=== PATIENT | male | born 1945 | race Caucasian/White ===

== ENCOUNTER 2017-12-01 12:21 | Emergency (ER) | payer OTHER, MEDICARE ==
[2017-12-01 12:35] VITALS: TEMP 98.2
[2017-12-01 12:42] VITALS: BP 137/68; PULSE 68; BMI 25.7
[2017-12-01] MEDS ORDERED: IBUPROFEN 600 MG TABLET (FP) PO ONE ×2 (13:15→13:17)
--- NOTE | 2017-12-01 13:49 | PDOC ---
History of Present Illness - General Chief Complaint: Injury Stated Complaint: SPRAIN ANKLE Time Seen by Provider: 12/01/17 12:50 History Source: Patient Exam Limitations: No Limitations - History of Present Illness Initial Comments: 12/01/17 14:07 72-year-old male presents to the ED with complaints of right ankle pain for the past week after spraining it when walking on uneven ollie. Patient states today when he stepped out of the car he had increasing pain to the area. Patient states left nephrectomy in August 2017 and states has neuropathy secondary to diabetes to bilateral lower extremities with decreased sensation. Timing/Duration: 1 week Severity: moderate Associated Symptoms: reports: denies symptoms Past History - Travel Traveled outside of the country in the last 30 days: No - Past Medical History Allergies/Adverse Reactions: Allergies Allergy/AdvReac Type Severity Reaction Status Date / Time No Known Allergies Allergy Verified 12/01/17 12:30 Home Medications: Ambulatory Orders Tacrolimus 3 mg PO BID 11/14/14 Ranitidine [Zantac -] 150 mg PO DAILY #30 tablet 11/16/14 Tamsulosin HCl [Flomax -] 0.4 mg PO DAILY@0830 #30 cap.er.24h 11/16/14 Insulin (Levemir) [Levemir Flexpen -] 26 units SQ DAILY@0700 #1 pen 01/12/15 Aspirin [ASA -] 81 mg PO DAILY 02/13/15 Metoclopramide HCl [Reglan] 5 mg PO TID 02/13/15 Pantoprazole Sodium [Protonix -] 20 mg PO DAILY 02/13/15 Ferrous Sulfate [Feosol] 325 mg PO BID #14 tablet 02/18/15 Finasteride [Proscar -] 5 mg PO DAILY #30 tablet 02/18/15 Atorvastatin Ca [Lipitor] 40 mg PO HS #30 tablet 10/16/15 Clopidogrel Bisulfate [Plavix -] 75 mg PO DAILY #30 tablet 10/16/15 Insulin Aspart [Novolog] 2 unit SQ TIDCM #1 ml 10/16/15 hydrALAZINE HCL [Apresoline -] 10 mg PO TID #90 tablet 10/16/15 levoFLOXacin [Levaquin -] 250 mg PO DAILY@0600 #5 tablet 10/16/15 Oxycodone HCl/Acetaminophen [Percocet 5-325 mg Tablet] 1 - 2 tab PO Q6H PRN #12 tab MDD 4 12/01/17 Anemia: No Asthma: No Cancer: No Cardiac Disorders: Yes CVA: Yes COPD: No CHF: No Dementia: No Diabetes: Yes GI Disorders: No Disorders: Yes (right KIDNEY TRANSPLANT.) HTN: No Hypercholesterolemia: No Liver Disease: No Seizures: No Thyroid Disease: No - Surgical History Abdominal Surgery: No Appendectomy: No Cardiac Surgery: Yes (cabg) Cholecystectomy: No Lung Surgery: No Neurologic Surgery: No Orthopedic Surgery: No - Immunization History Immunization Up to Date: Yes - Suicide/Smoking/Psychosocial Hx Smoking History: Never smoked Have you smoked in the past 12 months: No Number of Cigarettes Smoked Daily: 10 If you are a former smoker, when did you quit?: 4yrs ago Information on smoking cessation initiated: No 'Breaking Loose' booklet given: 12/31/14 Hx Alcohol Use: No Drug/Substance Use Hx: No Substance Use Type: None Hx Substance Use Treatment: No Patient Lives Alone: No Lives with/in: spouse/SO Review of Systems - Review of Systems Able to Perform ROS?: Yes Constitutional: No: Symptoms Reported Musculoskeletal: Yes: Joint Pain (right ankle), Joint Swelling (right ankle) Integumentary: Yes: Bruising (right ankle) Neurological: No: Symptoms reported Endocrine: No: Symptoms Reported Hematologic/Lymphatic: No: Symptoms Reported *Physical Exam - Vital Signs Last Vital Signs Temp Pulse Resp BP Pulse Ox 98.2 F 68 16 137/68 96 12/01/17 12:31 12/01/17 12:31 12/01/17 12:31 12/01/17 12:31 12/01/17 12:31 - Physical Exam General Appearance: Yes: Nourished, Appropriately Dressed, Mild Distress Vascular Pulses: Dorsalis-Pedis (R): 2+ Extremity: positive: Normal Capillary Refill, Tender (to lateral aspect of right malleolus). negative: Normal Inspection, Normal Range of Motion Integumentary: positive: Swelling, Ecchymosis (lateral aspect of right Malleolus ) Neurologic: positive: Motor Strength 5/5 (ambulating with limp). negative: Sensory Deficit Procedures - Splinting Splint Location: Right: Ankle Pre-Proc Neuro Vasc Exam: normal Hand-Made Type: orthoglass Splint Type: Yes: Sugar Tong, Posterior Post-Proc Neuro Vasc Exam: normal Shashi Bandage: 3" Complications: No Good repositioning: Yes ED Treatment Course - RADIOLOGY Radiology Studies Ordered: Category Date Time Status ANKLE-RIGHT [RAD] Stat Radiology 12/01/17 13:02 Taken ANKLE-RIGHT [RAD] Stat Radiology 12/01/17 13:37 Ordered - Medications Given in the ED: ED Medications Discontinued Medications Generic Name Dose Route Start Last Admin Trade Name Freq PRN Reason Stop Dose Admin Ibuprofen 600 mg 12/01/17 13:15 12/01/17 13:19 Motrin - PO 12/01/17 13:16 600 mg ONCE ONE Administration Medical Decision Making - Medical Decision Making 12/01/17 13:51 Patient with injury to right ankle after tripping one week ago. Patient concerning the fracture secondary to tenderness swelling and limited range of motion of right malleolus. Patient ordered for x-ray along with Motrin for discomfort 12/01/17 14:15 X-ray shows a right displaced distal fibular fracture and a nondisplaced distal tibia fracture. consultation placed to Dr Hedrick and awaiting callback. 12/01/17 14:52 Case discussed with ROXANA Sexton and recommended posterior leg splint and a sugar tong splint. Pt will be non weight bearing and given xray on disc since he wants to go to [facility]. *DC/Admit/Observation/Transfer Diagnosis at time of Disposition: Closed bimalleolar fracture of right ankle Qualifiers: Encounter type: initial encounter Qualified Code(s): S82.841A - Displaced bimalleolar fracture of right lower leg, initial encounter for closed fracture - Discharge Dispostion Disposition: HOME Condition at time of disposition: Good - Prescriptions Prescriptions: Oxycodone HCl/Acetaminophen [Percocet 5-325 mg Tablet] 1 - 2 tab PO Q6H PRN #12 tab MDD 4 PRN Reason: Pain - Referrals Referrals: Jett Verma MD [Primary Care Provider] - Fly Hedrick MD [Staff Physician] - - Patient Instructions Printed Discharge Instructions: DI for Ankle Fracture Additional Instructions: Please follow-up with your doctor in orthopedist to discuss management of your ankle fracture. You may take Percocet for discomfort. Please apply ice to the affected area and elevate when not ambulatory Please avoid placing weight to the area - Post Discharge Activity
== END 2017-12-01 15:25 | disposition home or self-care (01) ==
LOC: JERFT 12:21
PROC: 2W3QX1Z Immobilization of Right Lower Leg using Splint (ICD-10-PCS; principal; 2017-12-01)
DX: S82.841A Displaced bimalleolar fracture of right lower leg, initial encounter for closed fracture (principal); W01.0XXA Fall on same level from slipping, tripping and stumbling without subsequent striking against object, initial encounter; Y93.89 Activity, other specified; Y92.89 Other specified places as the place of occurrence of the external cause; Y99.8 Other external cause status; E11.42 Type 2 diabetes mellitus with diabetic polyneuropathy; Z79.4 Long term (current) use of insulin; Z86.73 Personal history of transient ischemic attack (TIA), and cerebral infarction without residual deficits; Z87.891 Personal history of nicotine dependence; Z94.0 Kidney transplant status
CPT/HCPCS: 73610-TC-RT-FY; 99281-25

== ENCOUNTER 2018-12-13 22:03 | Inpatient (IN) | payer OTHER, MEDICARE ==
[2018-12-13 22:53] LABS: BASO % 1.3 % (0-2.0); EOS % 1.7 % (0-4.5); HEMATOCRIT 33.2 % (35.4-49); HEMOGLOBIN 10.7 GM/dl (11.7-16.9); LYMPH % 20.1 % (8-40); MCH 28.5 pg (25.7-33.7); MCHC 32.4 g/dl (32.0-35.9); MEAN CELL VOLUME 88.1 fl (80-96); MEAN PLT VOLUME 8.4 fl (7.5-11.1); MONO % 6.8 % (3.8-10.2); NEUT % 70.1 % (42.8-82.8); PLATELET COUNT 185 K/MM3 (134-434); RBC 3.77 M/mm3 (4.00-5.60); RDW 14.8 % (11.9-15.9); WHITE BLOOD COUNT 4.4 K/mm3 (4.0-10.8)
[2018-12-13 23:06] LABS: INR 1.24 (0.82-1.09); PROTHROMBIN TIME (PATIENT) 13.8 SEC (10.2-13.0)
[2018-12-13 23:12] LABS: ALBUMIN 3.7 g/dl (3.4-5.0); ALK PHOS 177 U/L (45-117); ANION GAP 6 MMOL/L (8-16); BILIRUBIN,TOTAL 0.5 mg/dl (0.2-1); BLOOD UREA NITROGEN 37 mg/dl (7-18); CALCIUM 9.1 mg/dl (8.5-10); CHLORIDE 107 mmol/L (98-107); CO2 23 mmol/L (21-32); CREATININE 1.6 mg/dl (0.55-1.3); GLUCOSE,RANDOM 271 mg/dl (74-106); SGOT/AST 22 U/L (15-37); SGPT/ALT 27 U/L (13-61); SODIUM 136 mmol/L (136-145); TOT PROT 6.1 g/dl (6.4-8.2)
[2018-12-13 23:13] LABS: POTASSIUM 5.7 mmol/L (3.5-5.1)
--- NOTE | 2018-12-13 23:29 | PDOC ---
Documentation entered by Leroy Haile SCRIBE, acting as scribe for Mayra Cedeño MD. Mayra Cedeño MD: This documentation has been prepared by the Lazara adams Juan Manue, SCRIBE, under my direction and personally reviewed by me in its entirety. I confirm that the documentation accurately reflects all work, treatment, procedures, and medical decision making performed by me. History of Present Illness - General Chief Complaint: Congestive Heart Failure Stated Complaint: SOB Time Seen by Provider: 12/13/18 22:16 History Source: Patient, Family Exam Limitations: No Limitations - History of Present Illness Initial Comments: 12/13/18 22:36 The patient is a 73 year old male presenting with his son, who presents to the ED complaining of shortness of breath and ascites for the past 3 weeks. As per the son, the patient saw his PMD, did bloodwork and advised him to see a spot billing clerk. The patient saw the spot billing clerk today, who sent him to the ED for further evaluation. On presentation, the patient notes that he feels more swollen than usual, mostly localized in his abdomen. He notes that he has had swelling before but not to this severity. He also notes that he had swelling in his feet but has subsided. He reports that he is unable to sleep in certain positions due to his shortness of breath. The patient denies chest pain, headache and dizziness. Denies fever, chills, nausea, vomiting, diarrhea or constipation. PAST MEDICAL HISTORY: CVA, Diabetes, ESRD right kidney transplant PAST SURGICAL HISTORY: Right kidney transplant, CABG X3 FAMILY HISTORY: no pertinent history SOCIAL HISTORY: Pt lives with family and is employed. MEDICATIONS: reviewed ALLERGIES: As per nursing notes HOSPITAL MORTICIAN: Dr. Trent General: No fevers or chills, no weakness, no weight loss HEENT: No change in vision. No sore throat,. No ear pain CardioVascular: No chest pain or shortness of breath Respiratory: (+) Shortness of breath. No cough, or wheezing. Gastrointestinal: (+) Ascites. no nausea, vomiting, diarrhea or constipation, No rectal bleeding Genitourinary: No dysuria, hematuria, or frequency Musculoskeletal: No joint or muscle pain or swelling Neurologic: No headache, vertigo, dizziness or loss of consciousness Psychiatric: nor depression Skin: No rashes or easy bruising Endocrine: no increased thirst or abnormal weight change Allergic: no skin or latex allergy All other systems reviewed and normal General: Well-nourished well-developed individual, no acute distress HEENT: Throat: Normal, tonsils normal, no erythema or exudate Neck: Supple, no meningeal signs, no lymphadenopathy Eyes::Pupils equal reactive and round, extraocular motion intact Chest: Nontender to palpation Cardiac: S1-S2 normal, regular rate and rhythm, no murmurs rubs or gallops Respiratory: (+) Rales bilateral bases Abdomen: (+) Distended. normal bowel sounds, nontender to palpation diffusely Extremities: Warm, dry, no cyanosis, clubbing, or edema Skin: No rashes Neuro: Alert and oriented x3, nonfocal exam, grossly intact, normal gait Psych: Normal mood and affect 12/13/18 23:25 Assessment and plan: This is a 73-year-old male who comes in complaining of difficulty breathing with two-pillow orthopnea. Patient went to his primary care doctor and blood work was done that showed a BNP of over 3000 and he was sent to a spot billing clerk. The spot billing clerk said given his symptoms that he should come to the emergency room to be ruled out for cardiac disease and to have his difficulty breathing evaluated. Patient denies any chest pain. Workup was initiated including chest x-ray, CBC, comp, BNP, cardiac enzymes. Chest x-ray was interpreted by me with some congestive heart failure, an enlarged heart, and evidence of valve replacement as well as a midline sternotomy. EKG showed normal sinus rhythm with a left axis deviation otherwise no acute ST- T wave changes. Patient's potassium was mildly elevated at 5.7 Patient will be admitted to a telemetry bed. Past History - Past Medical History Allergies/Adverse Reactions: Allergies Allergy/AdvReac Type Severity Reaction Status Date / Time No Known Allergies Allergy Verified 12/01/17 12:30 Home Medications: Ambulatory Orders Tacrolimus 5 mg PO HS 11/14/14 Ranitidine [Zantac -] 150 mg PO DAILY #30 tablet 11/16/14 Aspirin [ASA -] 81 mg PO DAILY 02/13/15 Mycophenolate Sodium [Mycophenolic Acid] 360 mg PO BID 12/13/18 Tamsulosin HCl [Flomax -] 0.8 mg PO DAILY@0830 12/13/18 Anemia: No Asthma: No Cancer: No Cardiac Disorders: Yes CVA: Yes COPD: No CHF: No Dementia: No Diabetes: Yes GI Disorders: No Disorders: Yes (ESRD, right KIDNEY TRANSPLANT.) HTN: No Hypercholesterolemia: No Liver Disease: No Seizures: No Thyroid Disease: No - Surgical History Abdominal Surgery: No Appendectomy: No Cardiac Surgery: Yes ([id number]) Cholecystectomy: No Lung Surgery: No Neurologic Surgery: No Orthopedic Surgery: No - Immunization History Immunization Up to Date: Yes - Suicide/Smoking/Psychosocial Hx Smoking History: Unknown if ever smoked Have you smoked in the past 12 months: No Number of Cigarettes Smoked Daily: 10 If you are a former smoker, when did you quit?: 4yrs ago Information on smoking cessation initiated: No 'Breaking Loose' booklet given: 12/31/14 Hx Alcohol Use: No Drug/Substance Use Hx: No Substance Use Type: None Hx Substance Use Treatment: No *Physical Exam - Vital Signs Last Vital Signs Temp Pulse Resp BP Pulse Ox 97.9 F 74 18 176/65 H 95 12/13/18 22:17 12/13/18 22:17 12/13/18 22:17 12/13/18 22:17 12/13/18 22:17 ED Treatment Course - LABORATORY CBC & Chemistry Diagram: 12/13/18 22:35 12/13/18 22:35 - ADDITIONAL ORDERS Additional order review: Laboratory Results 12/13/18 12/13/18 12/13/18 22:35 22:35 22:35 PT with INR INR Sodium 136 Potassium 5.7 H Chloride 107 Carbon Dioxide 23 Anion Gap 6 L BUN 37 H Creatinine 1.6 H Creat Clearance w eGFR 42.70 Random Glucose 271 H Calcium 9.1 Total Bilirubin 0.5 AST 22 ALT 27 Alkaline Phosphatase 177 H Creatine Kinase 136 Troponin I < 0.03 Total Protein 6.1 L Albumin 3.7 Urine Color Urine Appearance Urine pH Urine Protein Urine Glucose (UA) Urine Ketones Urine Blood Urine Nitrite Urine Bilirubin Urine Urobilinogen Ur Leukocyte Esterase Urine RBC Urine WBC Urine Bacteria 12/13/18 12/13/18 22:35 22:35 PT with INR 13.8 H INR 1.24 H Sodium Potassium Chloride Carbon Dioxide Anion Gap BUN Creatinine Creat Clearance w eGFR Random Glucose Calcium Total Bilirubin AST ALT Alkaline Phosphatase Creatine Kinase Troponin I Total Protein Albumin Urine Color Yellow Urine Appearance Clear Urine pH 5.5 Urine Protein 3+ H Urine Glucose (UA) Negative Urine Ketones Trace Urine Blood 1+ H Urine Nitrite Negative Urine Bilirubin Negative Urine Urobilinogen 0.2 Ur Leukocyte Esterase Negative Urine RBC 5-10 Urine WBC 0-2 Urine Bacteria Few 12/13/18 22:35 RBC 3.77 L MCV 88.1 MCHC 32.4 RDW 14.8 MPV 8.4 Neutrophils % 70.1 Lymphocytes % 20.1 Monocytes % 6.8 Eosinophils % 1.7 Basophils % 1.3 - RADIOLOGY Radiology Studies Ordered: Category Date Time Status CHEST X-RAY PORTABLE* [RAD] Stat Radiology 12/13/18 22:26 Taken *DC/Admit/Observation/Transfer Diagnosis at time of Disposition: CHF (congestive heart failure) - Discharge Dispostion Condition at time of disposition: Stable Decision to Admit order: Yes - Referrals Referrals: Naveen Trent MD [Primary Care Provider] - - Patient Instructions - Post Discharge Activity - Attestations Scribe Attestion: 12/13/18 22:36 Documentation prepared by Leroy Haile, acting as medical tech for Mayra Cedeño MD
[2018-12-13] MEDS ORDERED: SODIUM POLYSTYRENE SULFONATE 15 GM/60 ML BOTTLE PO ONE (23:48)
[2018-12-13] MEDS ORDERED: FUROSEMIDE 40 MG/4 ML INJECTABLE VIAL IVPUSH ONE (23:48)
[2018-12-13] MEDS ORDERED: FUROSEMIDE 40 MG/4 ML INJECTABLE VIAL ONE (23:50)
[2018-12-13] MEDS ORDERED: SODIUM POLYSTYRENE SULFONATE 15 GM/60 ML BOTTLE ONE (23:50)
[2018-12-14] MEDS ORDERED: HEPARIN NA (PORCINE) 5,000 UNITS/ML 1ML VIAL SQ SCH (02:00)
--- NOTE | 2018-12-14 07:29 | HP ---
CHIEF COMPLAINT: Shortness of breath, orthopnea PCP: Dr. Erazo, [facility] Cardiology: Dr. Trent HISTORY OF PRESENT ILLNESS: 73 year-old male with a PMH significant for HTN, HLD CAD s/p CABG s/p mitral and tricuspid valve repairs (2008), CVAs (2011, 2014), renal failure s/p transplant (2011), and Type II IDDM. Patient presented to the ED with a complaint of shortness of breath, orthopnea, and swelling of his abdomen, and bilateral lower extremities x 3 weeks. Patient saw his PCP Dr. Erazo on 12/[address] Erazo referred patient to see Dr. Trent, [facility]. Patient presented last night to the [facility] ED. Patient denies any change in diet, he avoids salt. He denies chest pain, palpitations. He becomes lightheaded if he changes position too quickly. He denies fever, sweats, chills. He denies recent illness. He has no difficulty urinating, denies dysuria, frequency, urgency. Dry weight is 160lbs. In ED patient weighed 168.5 lbs. ER course was notable for: (1) BNP 5416 (2) Troponin neg x 1 (3) CXR: increased central markings since 2016 Recent Travel: No PAST MEDICAL HISTORY: Hypertension Hyperlipidemia Coronary artery disease Renal failure Type II IDDM Diabetic neuropathy CVAs (2011, 2014) Peptic ulcer disease Prostate cancer PAST SURGICAL HISTORY: CABG Mitral valve repair and tricuspid valve repair 2008 donor renal transplant 2012 Right ankle fracture multiple surgeries 2018 Social History: Smoking: quit 6 years ago Alcohol: no Drugs: no Family History: Allergies No Known Allergies Allergy (Verified 12/01/17 12:30) HOME MEDICATIONS: Home Medications Medication Instructions Recorded Tacrolimus 5 mg PO HS 11/14/14 Ranitidine [Zantac -] 150 mg PO DAILY #30 tablet 11/16/14 Aspirin [ASA -] 81 mg PO DAILY 02/13/15 Mycophenolate Sodium [Mycophenolic 360 mg PO BID 12/13/18 Acid] Tamsulosin HCl [Flomax -] 0.8 mg PO DAILY@0830 12/13/18 Insulin Glargine,Hum.rec.anlog 20 unit SQ AM 12/14/18 [Lantus] Insulin Sliding Scale [Novolog See Protocol SQ AC 12/14/18 Vial Sliding Scale -] REVIEW OF SYSTEMS CONSTITUTIONAL: Absent: fever, chills, diaphoresis, generalized weakness, malaise, loss of appetite, weight change HEENT: Absent: rhinorrhea, nasal congestion, throat pain, throat swelling, difficulty swallowing, mouth swelling, ear pain, eye pain, visual changes CARDIOVASCULAR: +lightheadedness with positional change, shortness of breath, orthopnea, lower extremity edema, abdominal edema Absent: chest pain, syncope, palpitations, irregular heart rate RESPIRATORY: Absent: cough, shortness of breath, dyspnea with exertion, orthopnea, wheezing, stridor, hemoptysis GASTROINTESTINAL: Absent: abdominal pain, abdominal distension, nausea, vomiting, diarrhea, constipation, melena, hematochezia GENITOURINARY: Absent: dysuria, frequency, urgency, hesitancy, hematuria, flank pain, genital pain MUSCULOSKELETAL: Absent: myalgia, arthralgia, joint swelling, back pain, neck pain SKIN: Absent: rash, itching, pallor HEMATOLOGIC/IMMUNOLOGIC: Absent: easy bleeding, easy bruising, lymphadenopathy, frequent infections ENDOCRINE: Absent: unexplained weight gain, unexplained weight loss, heat intolerance, cold intolerance NEUROLOGIC: Absent: headache, focal weakness or paresthesias, dizziness, unsteady gait, seizure, mental status changes, bladder or bowel incontinence PSYCHIATRIC: Absent: anxiety, depression, suicidal or homicidal ideation, hallucinations. PHYSICAL EXAMINATION Vital Signs - 24 hr 12/13/18 12/13/18 12/14/18 22:17 23:55 00:34 Temperature 97.9 F Pulse Rate 74 Pulse Rate [ 69 Apical] Respiratory 18 18 Rate Blood Pressure 176/65 H Blood Pressure 155/66 [Arm] O2 Sat by Pulse 95 96 98 Oximetry (%) 12/14/18 12/14/18 00:56 06:15 Temperature 97.8 F 98.1 F Pulse Rate 72 64 Pulse Rate [ Apical] Respiratory 17 18 Rate Blood Pressure 157/59 L 149/61 Blood Pressure [Arm] O2 Sat by Pulse 95 Oximetry (%) GENERAL: Awake, alert, and fully oriented, in no acute distress. HEAD: Normal with no signs of trauma. EYES: Pupils equal, round and reactive to light, extraocular movements intact, sclera anicteric, conjunctiva clear. No lid lag. EARS, NOSE, THROAT: Ears normal, nares patent, oropharynx clear without exudates. Moist mucous membranes. NECK: Normal range of motion, supple without lymphadenopathy, JVD, or masses. LUNGS: Breath sounds equal, clear to auscultation bilaterally. No wheezes, and no crackles. No accessory muscle use. HEART: Regular rate and rhythm, normal S1 and S2, +murmur ABDOMEN: Soft, mildly distended, not tender, no guarding, no rebound tenderness MUSCULOSKELETAL: Normal range of motion at all joints. No bony deformities or tenderness. No CVA tenderness. UPPER EXTREMITIES: 2+ pulses, warm, well-perfused. No cyanosis. No clubbing. No peripheral edema. LOWER EXTREMITIES: 2+ pulses, warm, well-perfused. No calf tenderness. 1+ bilateral edema; dried, dessicated lesions on both legs NEUROLOGICAL: Cranial nerves II-XII intact. Normal speech. Laboratory Results - last 24 hr 12/13/18 12/13/18 12/13/18 22:35 22:35 22:35 WBC 4.4 RBC 3.77 L Hgb 10.7 L Hct 33.2 L MCV 88.1 MCH 28.5 MCHC 32.4 RDW 14.8 Plt Count 185 MPV 8.4 Absolute Neuts (auto) 3.0 Neutrophils % 70.1 Lymphocytes % 20.1 Monocytes % 6.8 Eosinophils % 1.7 Basophils % 1.3 PT with INR 13.8 H INR 1.24 H Sodium Potassium Chloride Carbon Dioxide Anion Gap BUN Creatinine Creat Clearance w eGFR POC Glucometer Random Glucose Calcium Total Bilirubin AST ALT Alkaline Phosphatase Creatine Kinase Troponin I B-Natriuretic Peptide Total Protein Albumin Urine Color Yellow Urine Appearance Clear Urine pH 5.5 Urine Protein 3+ H Urine Glucose (UA) Negative Urine Ketones Trace Urine Blood 1+ H Urine Nitrite Negative Urine Bilirubin Negative Urine Urobilinogen 0.2 Ur Leukocyte Esterase Negative Urine RBC 5-10 Urine WBC 0-2 Urine Bacteria Few 12/13/18 12/13/18 12/13/18 22:35 22:35 22:35 WBC RBC Hgb Hct MCV MCH MCHC RDW Plt Count MPV Absolute Neuts (auto) Neutrophils % Lymphocytes % Monocytes % Eosinophils % Basophils % PT with INR INR Sodium 136 Potassium 5.7 H Chloride 107 Carbon Dioxide 23 Anion Gap 6 L BUN 37 H Creatinine 1.6 H Creat Clearance w eGFR 42.70 POC Glucometer Random Glucose 271 H Calcium 9.1 Total Bilirubin 0.5 AST 22 ALT 27 Alkaline Phosphatase 177 H Creatine Kinase 136 Troponin I < 0.03 B-Natriuretic Peptide Total Protein 6.1 L Albumin 3.7 Urine Color Urine Appearance Urine pH Urine Protein Urine Glucose (UA) Urine Ketones Urine Blood Urine Nitrite Urine Bilirubin Urine Urobilinogen Ur Leukocyte Esterase Urine RBC Urine WBC Urine Bacteria 12/13/18 12/14/18 22:35 07:05 WBC RBC Hgb Hct MCV MCH MCHC RDW Plt Count MPV Absolute Neuts (auto) Neutrophils % Lymphocytes % Monocytes % Eosinophils % Basophils % PT with INR INR Sodium Potassium Chloride Carbon Dioxide Anion Gap BUN Creatinine Creat Clearance w eGFR POC Glucometer 202 Random Glucose Calcium Total Bilirubin AST ALT Alkaline Phosphatase Creatine Kinase Troponin I B-Natriuretic Peptide 5416.5 H Total Protein Albumin Urine Color Urine Appearance Urine pH Urine Protein Urine Glucose (UA) Urine Ketones Urine Blood Urine Nitrite Urine Bilirubin Urine Urobilinogen Ur Leukocyte Esterase Urine RBC Urine WBC Urine Bacteria ASSESSMENT/PLAN 73 year-old male with a PMH significant for HTN, HLD CAD s/p CABG s/p mitral and tricuspid valve repairs (2008), CVAs (2011, 2014), renal failure s/p transplant (2011), and Type II IDDM. r/o Heart failure --mild congestive changes on CXR, mild lower extremity edema, SOB, orthopnea , 8.5 lb weight gain over 3 weeks --BNP elevated --12/14 echo: LV normal, EF 55-60%; RV normal; LAE; trace TR --given Lasix IVP 40mg x 1 in ED --pre post --pending cardiology consult Renal failure s/p transplant --Cr 1.6 ~ baseline --continue immunosuppressants --renal consult pending Hypertension --BP elevated; patient has been prescribed anti-hypertensives but does not take them, states he checks his BP at home and it is usually 120s systolic --await renal and cardiology input Hyperlipidemia --not on statin therapy Coronary artery disease Valvular disease s/p mitral and tricuspid valve repairs --continue ASA CVAs --continue ASA, not on statin Type II IDDM --Levemir 20U qam --Novolog sliding scale coverage FEN Fluids: PO intake adequate Electrolytes: replete as indicated Nutrition: renal diet, diabetic DVT prophylaxis: subq heparin Physical therapy Dispo: continues to require inpatient care. Full code. Visit type - Emergency Visit Emergency Visit: Yes ED Registration Date: 12/13/18 Care time: The patient presented to the Emergency Department on the above date and was hospitalized for further evaluation of their emergent condition. - New Patient This patient is new to me today: Yes Date on this admission: 12/14/18 - Critical Care Critical Care patient: No
[2018-12-14 07:56] LABS: ALBUMIN 3.5 g/dl (3.4-5.0); ALK PHOS 167 U/L (45-117); ANION GAP 7 MMOL/L (8-16); BILIRUBIN,TOTAL 0.5 mg/dl (0.2-1); BLOOD UREA NITROGEN 39 mg/dl (7-18); CALCIUM 8.9 mg/dl (8.5-10); CHLORIDE 110 mmol/L (98-107); CO2 23 mmol/L (21-32); CREATININE 1.6 mg/dl (0.55-1.3); GLUCOSE,RANDOM 206 mg/dl (74-106); PHOSPHOROUS 4.3 mg/dl (2.5-4.9); POTASSIUM 4.9 mmol/L (3.5-5.1); SGOT/AST 18 U/L (15-37); SGPT/ALT 28 U/L (13-61); SODIUM 140 mmol/L (136-145); TOT PROT 5.8 g/dl (6.4-8.2)
[2018-12-14 08:17] LABS: BASO % 0.2 % (0-2.0); EOS % 2.9 % (0-4.5); HEMATOCRIT 32.8 % (35.4-49); HEMOGLOBIN 10.4 GM/dl (11.7-16.9); LYMPH % 21.4 % (8-40); MCH 27.9 pg (25.7-33.7); MCHC 31.8 g/dl (32.0-35.9); MEAN CELL VOLUME 87.7 fl (80-96); MEAN PLT VOLUME 8.2 fl (7.5-11.1); MONO % 7.2 % (3.8-10.2); NEUT % 68.3 % (42.8-82.8); PLATELET COUNT 176 K/MM3 (134-434); RBC 3.75 M/mm3 (4.00-5.60); RDW 14.7 % (11.9-15.9); WHITE BLOOD COUNT 4.7 K/mm3 (4.0-10.8)
[2018-12-14] MEDS: TAMSULOSIN HCL 0.4 MG CAP PO SCH (08:40)
[2018-12-14] MEDS: INSULIN (LEVEMIR) 100 UNITS/ML UNITS SQ SCH (08:45)
[2018-12-14] MEDS: ASPIRIN 81 MG CHEWABLE TABLETS PO SCH (10:00)
[2018-12-14] MEDS: RANITIDINE HCL 150 MG TABLET (FP) PO SCH (10:00)
[2018-12-14] MEDS: MYCOPHENOLATE SODIUM 360 MG TABLET.DR PO SCH ×2 (10:02→21:58)
[2018-12-14] MEDS: INSULIN (NOVOLOG) ASPART 100 UNITS/ML 10ML VIAL SQ SCH ×3 (11:10→21:58)
--- NOTE | 2018-12-14 12:09 | EKG ---
Test Reason : Blood Pressure : / mmHG Vent. Rate : 070 BPM Atrial Rate : 070 BPM P-R Int : 178 ms QRS Dur : 104 ms QT Int : 428 ms P-R-T Axes : 056 -64 034 degrees QTc Int : 462 ms NORMAL SINUS RHYTHM LEFT AXIS DEVIATION PULMONARY DISEASE PATTERN ABNORMAL ECG WHEN COMPARED WITH ECG OF 11-OCT-2015 11:38, T WAVE AMPLITUDE HAS DECREASED IN ANTERIOR LEADS Confirmed by STEPHENIE MENDOZA, SONAM ([id number]) on 12/14/2018 12:09:16 PM Referred By: MD FALLON Confirmed By:SONAM CASIANO MD
--- NOTE | 2018-12-14 12:54 | ECHO ---
Name: DEYANIRA BROOKS Exam:Adult Echocardiogram Study Date: 12/14/2018 08:49 AM Age: 73 yrs Reason For Study: CHF Height: 64 in Weight: 170 lb BSA: 1.8 m2 MMode/2D Measurements & Calculations IVSd: 1.00 cm Ao root diam: 3.5 cm LVIDd: 5.0 cm LA dimension: 4.7 cm LVIDs: 3.6 cm LVPWd: 0.97 cm EDV(Teich): 119.2 ml LVOT diam: 2.2 cm ESV(Teich): 55.4 ml Doppler Measurements & Calculations MV E max belinda: 217.5 cm/sec Ao V2 max: 156.0 cm/sec MV A max belinda: 155.5 cm/sec Ao max P.7 mmHg MV E/A: 1.4 Ao V2 mean: 116.9 cm/sec Ao mean P.8 mmHg Ao V2 VTI: 41.0 cm ZARA(I,D): 1.8 cm2 ZARA(V,D): 2.0 cm2 LV V1 max P.5 mmHg SV(LVOT): 74.3 ml LV V1 mean P.5 mmHg LV V1 max: 79.2 cm/sec LV V1 mean: 58.6 cm/sec LV V1 VTI: 19.0 cm TR max belinda: 314.4 cm/sec PI end-d belinda: 64.8 cm/sec TR max P.6 mmHg Procedure A complete two-dimensional transthoracic echocardiogram was performed (2D, M-mode, Doppler and color flow Doppler). Left Ventricle The left ventricular size, thickness and function are normal. The left ventricular ejection fraction is normal. Ejection Fraction = 55-60%. The left ventricular wall motion is normal. Right Ventricle The right ventricle is normal in size and function. Atria The left atrium is mildly dilated. Right atrial size is normal. Mitral Valve There is mild mitral annular calcification. There is no mitral regurgitation noted. Tricuspid Valve There is trace tricuspid regurgitation. There was insufficient TR detected to calculate RV systolic p ressure. Aortic Valve The aortic valve is trileaflet. No hemodynamically significant valvular aortic stenosis. No aortic regurgitation is present. Pulmonic Valve There is no pulmonic valvular regurgitation. Great Vessels The aortic root is normal size. Pericardium/Pleura There is no pericardial effusion. Interpretation Summary The left ventricular size, thickness and function are normal The right ventricle is normal in size and function. The left atrium is mildly dilated. There is trace tricuspid regurgitation. MD Roberto Costa 12/14/2018 12:54 PM
[2018-12-14] MEDS: HEPARIN NA (PORCINE) 5,000 UNITS/ML 1ML VIAL SQ SCH ×2 (14:10→21:58)
--- NOTE | 2018-12-14 17:40 | CONSULT ---
Consult Consult Specialty:: Nephrology Katy Becker/ Jm Reason for Consultation:: The patient with ESRD , s/p Renal transplant. - History of Present Illness Chief Complaint: 73 y/o male admitted with shortness of breath, and feeling of abdominal distension. History of Present Illness: This is a 73 year-old male with a PMH significant for HTN, HLD CAD s/p CABG s/p Mitral and Tricuspid valve repairs (2008), CVAs (2011, 2014), ESRD, s/p transplant (2011), and Type II IDDM. Patient presented to the ED with a complaint of shortness of breath, orthopnea, and swelling of his abdomen, and bilateral lower extremities x 3 weeks. He denies chest pain, palpitations. He denies fever, sweats, chills. He denies recent illness. He has no difficulty urinating, denies dysuria, frequency, urgency. Dry weight is 160lbs. 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: CVA (old CVA 2011, 10/2014 left occipital cva), Other (diabetic neuropathy) Cardio/Vascular: Yes: CAD (H/o CABG 4 years ago), HTN, Hyperlipdemia Gastrointestinal: Yes: Peptic Ulcer Disease (on zantac) Renal/: Yes: Renal Failure Heme/Onc: Yes: Anemia Endocrine: Yes: Diabetes Mellitus (on insulin) - Past Surgical History Past Surgical History: Yes: CABG, Kidney Transplant - Alcohol/Substance Use Hx Alcohol Use: No History of Substance Use: reports: None - Smoking History Smoking history: Former smoker Have you smoked in the past 12 months: No Aproximately how many cigarettes per day: 10 If you are a former smoker, when did you quit?: 20 YEARS AGO - Social History Usual Living Arrangement: With Spouse ADL: Independent History of Recent Travel: No Home Medications - Allergies Allergies/Adverse Reactions: Allergies Allergy/AdvReac Type Severity Reaction Status Date / Time No Known Allergies Allergy Verified 12/01/17 12:30 - Home Medications Home Medications: Ambulatory Orders Tacrolimus 4 mg PO BID 11/14/14 Ranitidine [Zantac -] 150 mg PO DAILY #30 tablet 11/16/14 Aspirin [ASA -] 81 mg PO DAILY 02/13/15 Mycophenolate Sodium [Mycophenolic Acid] 360 mg PO BID 12/13/18 Tamsulosin HCl [Flomax -] 0.8 mg PO DAILY@0830 12/13/18 Insulin Glargine,Hum.rec.anlog [Lantus] 20 unit SQ AM 12/14/18 Insulin Sliding Scale [Novolog Vial Sliding Scale -] See Protocol SQ AC Review of Systems - Review of Systems Constitutional: reports: Weakness Cardiovascular: reports: Edema, Shortness of Breath Respiratory: reports: SOB, SOB on Exertion Gastrointestinal: reports: Bloating. denies: Diarrhea, Indigestion, Melena, Vomiting Musculoskeletal: denies: Back Pain Neurological: denies: Change in LOC Psychiatric: reports: Anxiety. denies: Altered Sleep Pattern Physical Exam Vital Signs: Vital Signs Temperature 98.3 F 12/14/18 14:00 Pulse Rate 65 12/14/18 16:08 Respiratory Rate 19 12/14/18 14:00 Blood Pressure 144/52 L 12/14/18 16:08 O2 Sat by Pulse Oximetry (%) 94 L 12/14/18 16:05 Constitutional: Yes: No Distress, Anxious Eyes: Yes: Conjunctiva Clear HENT: Yes: Normocephalic Neck: Yes: Trachea Midline Cardiovascular: Yes: Tachycardia, S2 Respiratory: Yes: CTA Bilaterally, Diminished Gastrointestinal: Yes: Normal Bowel Sounds, Soft Renal/: No: Bladder Distention, CVA Tenderness - Left, CVA Tenderness - Right , Hematuria Edema: Yes Edema: LLE: 1+, RLE: 1+ Neurological: Yes: Alert, Oriented Psychiatric: Yes: Alert, Oriented Labs: CBC, BMP 12/14/18 07:00 12/14/18 07:00 Problem List - Problems (1) CHF (congestive heart failure) Code(s): I50.9 - HEART FAILURE, UNSPECIFIED (2) Renal transplant recipient Code(s): Z94.0 - KIDNEY TRANSPLANT STATUS (3) Diabetes mellitus, insulin dependent (IDDM), uncontrolled Code(s): E10.65 - TYPE 1 DIABETES MELLITUS WITH HYPERGLYCEMIA (4) HTN, kidney transplant related Code(s): I15.1 - HYPERTENSION SECONDARY TO OTHER RENAL DISORDERS; Z94.0 - KIDNEY TRANSPLANT STATUS (5) Valvular disease Code(s): I38 - ENDOCARDITIS, VALVE UNSPECIFIED Assessment/Plan This is a 73 year-old male with a PMH significant for HTN, HLD CAD s/p CABG s/p Mitral and Tricuspid valve repairs (2008), CVAs (2011, 2014), ESRD, s/p transplant (2011), and Type II IDDM. Patient presented to the ED with a complaint of shortness of breath, orthopnea, and swelling of his abdomen, and bilateral lower extremities The patient has Hyperkalemia. He admits to eating large amounts of tomatoes in salad. The Serum K is normal now. Renal functions at his beseline level. There is fluid overload and possible CHF. Will start on Oral Lasix. Continue 2 gm Sodium 2 Gm K Potassium diet. The CT Scan shows no evidence of obstruction, or any evidence of acute renal events. Will monitor the renal functions with you. The patient's compliance with diet, MD follow up not ideal. Discussed the issues with the patient and family. Thank you. Hanane Becker MD
[2018-12-14] MEDS: FUROSEMIDE 40 MG TABLET (FP) PO SCH (18:11)
[2018-12-14] MEDS ORDERED: INSULIN (NOVOLOG) ASPART 100 UNITS/ML 10ML VIAL ONE (21:50)
[2018-12-14] MEDS ORDERED: PT OWN MED DRAWER 7, Y5N ONE (21:51)
[2018-12-14] MEDS: TACROLIMUS ANHYDROUS 1 MG CAPSULE PO SCH (21:57)
[2018-12-14] MEDS ORDERED: TACROLIMUS ANHYDROUS 1 MG CAPSULE PO SCH (22:00)
[2018-12-15 06:11] VITALS: BP 147/58; PULSE 63; TEMP 97.6
[2018-12-15] MEDS: HEPARIN NA (PORCINE) 5,000 UNITS/ML 1ML VIAL SQ SCH (06:24)
[2018-12-15] MEDS: INSULIN (NOVOLOG) ASPART 100 UNITS/ML 10ML VIAL SQ SCH (06:38)
[2018-12-15 07:30] LABS: BASO % 0.3 % (0-2.0); HEMATOCRIT 33.7 % (35.4-49); HEMOGLOBIN 10.9 GM/dl (11.7-16.9); LYMPH % 24.7 % (8-40); MCH 28.1 pg (25.7-33.7); MCHC 32.5 g/dl (32.0-35.9); MEAN CELL VOLUME 86.5 fl (80-96); MEAN PLT VOLUME 8.1 fl (7.5-11.1); MONO % 7.7 % (3.8-10.2); NEUT % 64.3 % (42.8-82.8); PLATELET COUNT 185 K/MM3 (134-434); RBC 3.89 M/mm3 (4.00-5.60); RDW 14.6 % (11.9-15.9); WHITE BLOOD COUNT 4.7 K/mm3 (4.0-10.8)
[2018-12-15 07:52] LABS: ALBUMIN 3.6 g/dl (3.4-5.0); ALK PHOS 168 U/L (45-117); ANION GAP 10 MMOL/L (8-16); BILIRUBIN,TOTAL 0.6 mg/dl (0.2-1); BLOOD UREA NITROGEN 42 mg/dl (7-18); CALCIUM 9.2 mg/dl (8.5-10); CHLORIDE 107 mmol/L (98-107); CO2 23 mmol/L (21-32); CREATININE 1.7 mg/dl (0.55-1.3); GLUCOSE,RANDOM 88 mg/dl (74-106); POTASSIUM 4.4 mmol/L (3.5-5.1); SGOT/AST 15 U/L (15-37); SGPT/ALT 23 U/L (13-61); SODIUM 140 mmol/L (136-145); TOT PROT 5.9 g/dl (6.4-8.2)
[2018-12-15] MEDS: INSULIN (LEVEMIR) 100 UNITS/ML UNITS SQ SCH (08:10)
[2018-12-15] MEDS: TAMSULOSIN HCL 0.4 MG CAP PO SCH (08:20)
--- NOTE | 2018-12-15 09:07 | CONS ---
DATE OF CONSULTATION: 12/14/2018 CARDIOLOGY CONSULTATION REQUESTING PHYSICIAN: Karly Joyner MD, hospitalist CHIEF COMPLAINT: 1. Increasing pedal edema. 2. History of mild exertional dyspnea. 3. Paroxysmal nocturnal dyspnea. 4. Intermittent abdominal distention. HISTORY OF PRESENT ILLNESS: The patient is a 73-year-old gentleman with a history of hypertension, hyperlipidemia, coronary artery disease status post coronary artery bypass grafting, status post mitral and tricuspid valve repair, history of end-stage renal disease status post renal transplant, type 2 fja-jfadqre-pladqkvtw diabetes mellitus, history of cerebrovascular accident as documented in the hospital records, status post prostatic carcinoma. He was admitted with increasing pedal edema. The patient also complained of abdominal distention and was experiencing recurring episodes of paroxysmal nocturnal dyspnea that would wake him up several times during the night. He has no history of orthopnea, chest pain or discomfort either at rest or with exertion. He has a history of palpitations, lightheadedness, dizziness, pre-syncope or syncope reported. The patient states that he would at times have early satiety and would notice that his abdomen was distended. He would develop increased flatulence and diarrhea after eating a meal. PAST HISTORY: 1. As mentioned in the history of present illness. 2. History of diabetic neuropathy as documented in the emergency room records. SURGICAL HISTORY:1. Status post tonsillectomy. 2. Status post surgery for a fractured right ankle. 3. History of coronary artery bypass grafting and mitral and tricuspid valve repair as documented in the hospital records. 4. History of bilateral cataract extraction. SOCIAL HISTORY: . 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 He has two sons and a daughter who are healthy. He used to smoke one to cigarettes per week, especially when he was having alcohol. He stopped smoking 15 years ago. The patient admits to excessive drinking in the past and stopped 15 years ago. No history of excessive caffeine use. No history of drug use. FAMILY HISTORY: Father at age 101 of natural causes. Mother at age 82 related to liver disease. He has five brothers and five sisters. One of his sisters in her 40's of liver disease. All other siblings are apparently healthy, except that one of his sisters is diabetic. ALLERGIES: None reported. CURRENT HOSPITAL MEDICATIONS: 1. Flomax 0.8 mg p.o. daily. 2. Heparin 5000 units subcutaneous t.i.d. 3. Zantac 150 mg p.o. daily. 4. Mycophenolate sodium and mycophenolic acid 360 mg p.o. b.i.d. 5. Prograf 4 mg b.i.d. 6. NovoLog insulin according to sliding scale. 7. Levemir insulin 20 units subcutaneous daily. 8. Furosemide 40 mg p.o. daily. 9. Aspirin 81 mg p.o. daily. REVIEW OF SYSTEMS: Constitutional: No history of chills, fever or night sweats. History of weight gain. HEENT: No history of headaches, diplopia or blurred vision. No history of epistaxis, hoarseness, tinnitus. History of mild deafness involving the left ear. Cardiovascular: See history of present illness. History of chest pain prior to open heart surgery. Respiratory: History of intermittent cough with scant clear expectoration. No history of hemoptysis or tuberculosis. Gastrointestinal: History of early satiety, abdominal distention. History of increased flatulence and intermittent diarrhea after eating a meal. No history of melena or hematemesis. No history of vomiting. Denies abdominal pain. Central Nervous System: Denies having lightheadedness or dizziness. No history of seizures or syncope. Medical records are reported to document that the patient has had a cerebral event on two different occasions. Genitourinary: History of prostatic carcinoma. No history of hematuria. History of nocturia two to three times. No history of urgency or frequency. Endocrine: See history of present illness. No history of intolerance to cold or warm weather. Musculoskeletal: No history of myalgias or arthralgias reported. Hematologic/Lymphatic: No history of anemia, bleeding or ecchymosis. No history of lymphadenopathy. PHYSICAL EXAMINATION: General: A 73-year-old gentleman who is alert and coherent. He was in no distress. No pallor, cyanosis, clubbing or jaundice. Vital signs: Blood pressure 139/61 mmHg standing; 137/55 mmHg supine. Pulse was 68 beats per minute and regular. Oxygen saturation 94% on room air. Respirations were 19 per minute. Weight was 76.66 kg on admission. Neck: Supple. No jugular venous distention. Slightly positive hepatojugular reflux. Neck veins were not pulsatile. Carotids were 2+, upstrokes were normal. No bruits were heard and no thyromegaly was present. Heart: PMI was in the 5th intercostal space, no heaves or thrills, heart sounds were distant. No murmur or gallops were appreciated. Lungs: Clear on auscultation. Chest: Normal AP diameter. Expansion was symmetrical. Abdomen: Protuberant/obese, soft and nontender. No hepatosplenomegaly or palpable masses were felt. There was tenderness on percussion involving the left lower abdominal quadrant. Bowel sounds were present. Extremities: No calf tenderness. There was trace to 1+ pretibial edema. Femoral pulses were 2+. Dorsalis pedis pulses were (?) 1+. Posterior tibial pulses could not be palpated. LABORATORY DATA: ECG on December 13, 2018: Sinus rhythm, left anterior neil-block, slow R-wave progression, V1 to V3, with terminal S waves in V5 and V6, may be related to left anterior neil-block, possibility of right ventricular preponderance cannot be excluded. Non-specific ST and T wave abnormality. CMP on December 13, 2018: Sodium 136, potassium 5.7, chloride 107, CO2 of 23, . BUN 37, creatinine 1.6 mg/dL, random glucose was 271 mg/dL. Alkaline phosphatase was slightly elevated at 177. CK was 136; troponin was less than 0.03. BNP was 5416.5. Followup electrolytes: Sodium 140, potassium 4.9, chloride 110, CO2 of 23 mmol/liter, BUN 39, creatinine 1.6 mg/dL. Glucose was 206 mg/dL. X-ray chest was reported to be a single AP view of the chest; this is being submitted. Since October 14, 2015, there is a more apical lordotic projection with slight increase in central marking. There is a large heart with aorta. Valvular and sternal sutures. Correlation recommended. Echocardiogram interpretation summary: 1. The left ventricular size, thickness and function are normal. 2. The right ventricle is normal in size and function. 3. The left atrium is mildly dilated. 4. There is trace tricuspid regurgitation.. IMPRESSION: 1. Clinical presentation and physical findings are consistent with congestive heart failure, Mcdonald Heart Classification on admission currently 2. Etiology to be determined. a. Secondary to left ventricular diastolic dysfunction. b. Progression of coronary artery disease. c. Tricuspid regurgitation needs exclusion. 2. History of coronary artery bypass grafting. 3. History of valve repair/replacement. 4. Insulin-dependent diabetes mellitus. 5. Status post renal transplant. 6. History of dyslipidemia. 7. Hypertension. 8. History of cerebrovascular accident. RECOMMENDATION: 1. Concur with current plan of treatment, including introduction of oral diuretics. 2. Once the patient has stabilized, he should have a Lexiscan myocardial perfusion study. 3. The patient may require additional therapies if his blood pressure remains elevated. 4. Consult regarding dietary restrictions, especially curtailing sodium intake and food rich in potassium. 5. Should monitor his weight on a daily basis. 6. Prognosis guarded. Thank you for your referral. Sarah [id number]
[2018-12-15] MEDS ORDERED: PT OWN MED DRAWER 7, Y5N ONE (09:08)
--- NOTE | 2018-12-15 09:35 | PN ---
Progress Note (short form) - Note Progress Note: Renal follow up for Renal transplant Pt seen and examined at the bedside awake and alert feels much better, back at baseline no sob overnight, no cp, fever, chills, N/V/D, Abd pain making urine Vital Signs Temperature 97.6 F 12/15/18 06:10 Pulse Rate 63 12/15/18 06:10 Respiratory Rate 20 12/15/18 06:10 Blood Pressure 147/58 L 12/15/18 06:10 O2 Sat by Pulse Oximetry (%) 95 12/15/18 06:10 Intake & Output 12/12/18 12/13/18 12/14/18 12/15/18 23:59 23:59 23:59 23:59 Intake Total 400 Output Total 750 500 Balance -350 -500 Weight 79.379 kg 76.66 kg 74.106 kg NAD awake and alert RRR CTA, no rales soft NT/ND no graft tenderness no LE edema CBC, BMP 12/15/18 06:45 12/15/18 06:45 Current Medications Aspirin (Asa -) 81 mg PO DAILY [facility] Last Admin: 12/14/18 10:00 Dose: 81 mg Furosemide (Lasix -) 40 mg PO DAILY [facility] Last Admin: 12/14/18 18:11 Dose: 40 mg Heparin Sodium (Porcine) (Heparin -) 5,000 unit SQ TID [facility] Last Admin: 12/15/18 06:24 Dose: 5,000 unit Insulin Aspart (Novolog Vial) 0 units SQ ACHS [facility]; Protocol Last Admin: 12/15/18 06:38 Dose: Not Given Insulin Detemir (Levemir Vial) 20 units SQ DAILY@0800 [facility] Last Admin: 12/14/18 08:45 Dose: 20 units Mycophenolate Sodium (Mycophenolic Acid) 360 mg PO BID [facility] Last Admin: 12/14/18 21:58 Dose: 360 mg Ranitidine HCl (Zantac -) 150 mg PO DAILY [facility] Last Admin: 12/14/18 10:00 Dose: 150 mg Tacrolimus (Prograf) 4 mg PO BID [facility] Last Admin: 12/14/18 21:57 Dose: 4 mg Tamsulosin HCl (Flomax -) 0.8 mg PO DAILY@0830 [facility] Last Admin: 12/14/18 08:40 Dose: 0.8 mg 73 year-old male with a PMH significant for HTN, HLD CAD s/p CABG s/p Mitral and Tricuspid valve repairs (2008), CVAs (2011, 2014), ESRD, s/p transplant ( 2011), and Type II IDDM who presented with SOB, LE swelling. #ESRD s/p Renal Transplant #CKD #SOB from CHF vs CAD #HTN #DM Renal function stable continue tacrolimus and myfortic Continue Lasix 40mg Daily as an outpatient salt restriction follow up with Dr. Becker as an outpatient Stress testing with cardiology as an outpatient Stable for discharge from renal perspective Thank you Clint Das DO.
[2018-12-15] MEDS: TACROLIMUS ANHYDROUS 1 MG CAPSULE PO SCH (09:48)
[2018-12-15] MEDS: ASPIRIN 81 MG CHEWABLE TABLETS PO SCH (09:48)
[2018-12-15] MEDS: FUROSEMIDE 40 MG TABLET (FP) PO SCH (09:49)
[2018-12-15] MEDS: RANITIDINE HCL 150 MG TABLET (FP) PO SCH (09:49)
--- NOTE | 2018-12-15 09:56 | DS ---
Physical Exam: SUBJECTIVE: Patient seen and examined OBJECTIVE: Vital Signs Period Temp Pulse Resp BP Sys/Joshi Pulse Ox Last 24 Hr 97.5 F-98.3 F 58-73 18-20 133-177/52-66 94-97 PHYSICAL EXAM GENERAL: The patient is awake, alert, and fully oriented, in no acute distress. HEAD: Normal with no signs of trauma. EYES: PERRL, extraocular movements intact, sclera anicteric, conjunctiva clear. ENT: Ears normal, nares patent, oropharynx clear without exudates, moist mucous membranes. NECK: Trachea midline, full range of motion, supple. LUNGS: Breath sounds equal, clear to auscultation bilaterally, no wheezes, no crackles, no accessory muscle use. HEART: Regular rate and rhythm, S1, S2 without murmur, rub or gallop. ABDOMEN: Soft, nontender, nondistended, normoactive bowel sounds, no guarding, no rebound, no hepatosplenomegaly, no masses. EXTREMITIES: 2+ pulses, warm, well-perfused, no edema. NEUROLOGICAL: Cranial nerves II through XII grossly intact. Normal speech, gait not observed. PSYCH: Normal mood, normal affect. SKIN: Warm, dry, normal turgor, no rashes or lesions noted. LABS Laboratory Results - last 24 hr 12/14/18 12/14/18 12/14/18 10:05 12:08 17:16 WBC RBC Hgb Hct MCV MCH MCHC RDW Plt Count MPV Absolute Neuts (auto) Neutrophils % Lymphocytes % Monocytes % Eosinophils % Basophils % Sodium Potassium Chloride Carbon Dioxide Anion Gap BUN Creatinine Creat Clearance w eGFR POC Glucometer 227 120 Random Glucose Calcium Total Bilirubin AST ALT Alkaline Phosphatase Troponin I 0.05 Total Protein Albumin 12/14/18 12/15/18 12/15/18 21:11 06:34 06:45 WBC RBC Hgb Hct MCV MCH MCHC RDW Plt Count MPV Absolute Neuts (auto) Neutrophils % Lymphocytes % Monocytes % Eosinophils % Basophils % Sodium 140 Potassium 4.4 Chloride 107 Carbon Dioxide 23 Anion Gap 10 BUN 42 H Creatinine 1.7 H Creat Clearance w eGFR 39.82 POC Glucometer 163 79 Random Glucose 88 Calcium 9.2 Total Bilirubin 0.6 AST 15 ALT 23 Alkaline Phosphatase 168 H Troponin I Total Protein 5.9 L Albumin 3.6 12/15/18 06:45 WBC 4.7 RBC 3.89 L Hgb 10.9 L Hct 33.7 L MCV 86.5 MCH 28.1 MCHC 32.5 RDW 14.6 Plt Count 185 MPV 8.1 Absolute Neuts (auto) 3.0 Neutrophils % 64.3 Lymphocytes % 24.7 Monocytes % 7.7 Eosinophils % 3.0 Basophils % 0.3 Sodium Potassium Chloride Carbon Dioxide Anion Gap BUN Creatinine Creat Clearance w eGFR POC Glucometer Random Glucose Calcium Total Bilirubin AST ALT Alkaline Phosphatase Troponin I Total Protein Albumin HOSPITAL COURSE: Date of Admission:12/13/18 Date of Discharge: 12/15/18 Pre hospital course 73 year-old male with a PMH significant for HTN, HLD CAD s/p CABG s/p mitral and tricuspid valve repairs (2008), CVAs (2011, 2014), renal failure s/p transplant (2011), and Type II IDDM. Patient presented to the ED with a complaint of shortness of breath, orthopnea, and swelling of his abdomen, and bilateral lower extremities x 3 weeks. Patient saw his PCP Dr. Erazo on 12/[address] Erazo referred patient to see Dr. Trent, evp operations. Patient presented last night to the [facility] ED. Patient denies any change in diet, he avoids salt. He denies chest pain, palpitations. He becomes lightheaded if he changes position too quickly. He denies fever, sweats, chills. He denies recent illness. He has no difficulty urinating, denies dysuria, frequency, urgency. Dry weight is 160lbs. In ED patient weighed 168.5 lbs. ER course (1) BNP 5416 (2) Troponin neg x 1 (3) CXR: increased central markings since 2016 Subsequent hospital course 73 year-old male with a PMH significant for HTN, HLD CAD s/p CABG s/p mitral and tricuspid valve repairs (2008), CVAs (2011, 2014), renal failure s/p transplant (2011), and Type II IDDM. Diastolic heart failure, newly diagnosed --mild congestive changes on CXR, mild lower extremity edema, SOB, orthopnea , 8.5 lb weight gain over 3 weeks --BNP elevated --12/14 echo: LV normal, EF 55-60%; RV normal; LAE; trace TR --treated in ED with IV Lasix 40mg x 1 with resolution of SOB; --started daily lasix 40mg daily --f/u with Dr. Trent Renal failure s/p transplant --Cr 1.7 ~ baseline --continue immunosuppressants --f/u with Dr. Becker Hypertension --BP stable, not on anti-hypertensives Hyperlipidemia --not on statin therapy Coronary artery disease Valvular disease s/p mitral and tricuspid valve repairs --continued ASA CVAs --continue ASA, not on statin Type II IDDM --Levemir 20U qam --Novolog sliding scale coverage Minutes to complete discharge: 35 Discharge Summary Reason For Visit: CONGESTIVE HEART FAILURE. Current Active Problems CHF (congestive heart failure) (Acute) Condition: Improved - Instructions Referrals: Naveen Trent MD [Primary Care Provider] - Hanane Becker MD [Staff Physician] - Disposition: HOME - Home Medications Comprehensive Discharge Medication List: Ambulatory Orders Tacrolimus 4 mg PO BID 11/14/14 Ranitidine [Zantac -] 150 mg PO DAILY #30 tablet 11/16/14 Aspirin [ASA -] 81 mg PO DAILY 02/13/15 Mycophenolate Sodium [Mycophenolic Acid] 360 mg PO BID 12/13/18 Tamsulosin HCl [Flomax -] 0.8 mg PO DAILY@0830 12/13/18 Insulin Glargine,Hum.rec.anlog [Lantus] 20 unit SQ AM 12/14/18 Insulin Sliding Scale [Novolog Vial Sliding Scale -] See Protocol SQ AC Furosemide [Lasix -] 40 mg PO DAILY #30 tablet 12/15/18 This patient is new to me today: No Emergency Visit: Yes ED Registration Date: 12/13/18 Care time: The patient presented to the Emergency Department on the above date and was hospitalized for further evaluation of their emergent condition. Critical Care patient: No - Discharge Referral Referred to [facility] Med P.C.: No
== END 2018-12-15 11:15 | disposition home or self-care (01) | DRG 291 ==
LOC: FER 22:03 → SUPCPDRO 22:03 → FM/S 23:49
PROVIDERS: ADMIT Internal Medicine; ATTEND Nurse Practitioner Acute Care
DX: I13.0 Hypertensive heart and chronic kidney disease with heart failure and stage 1 through stage 4 chronic kidney disease, or unspecified chronic kidney disease (principal); I50.31 Acute diastolic (congestive) heart failure; E11.22 Type 2 diabetes mellitus with diabetic chronic kidney disease; N18.9 Chronic kidney disease, unspecified; I25.10 Atherosclerotic heart disease of native coronary artery without angina pectoris; E78.5 Hyperlipidemia, unspecified; E11.40 Type 2 diabetes mellitus with diabetic neuropathy, unspecified; D64.9 Anemia, unspecified; E87.5 Hyperkalemia; E11.65 Type 2 diabetes mellitus with hyperglycemia; Z87.11 Personal history of peptic ulcer disease; Z94.0 Kidney transplant status; Z95.2 Presence of prosthetic heart valve; Z85.46 Personal history of malignant neoplasm of prostate; Z86.73 Personal history of transient ischemic attack (TIA), and cerebral infarction without residual deficits; Z95.1 Presence of aortocoronary bypass graft; Z87.891 Personal history of nicotine dependence
CPT/HCPCS: 36415; 71045-TC-FY; 74176-TC; 80053; 80197; 81003; 81015; 82550; 82962; 83880; 84100; 84484; 85025; 85610; 93005; 93306-TC; 94761; 97116-GP; 97161-GP; 99285-25; J1644

== ENCOUNTER 2021-09-18 22:14 | Observation (INO) | payer OTHER, MEDICARE ==
[2021-09-18 23:48] LABS: BASO % 0.4 % (0-2.0); EOS % 1.6 % (0-4.5); HEMATOCRIT 31.5 % (35.4-49); HEMOGLOBIN 10.7 GM/dL (11.7-16.9); MCH 30.1 pg (25.7-33.7); MCHC 33.8 g/dl (32.0-35.9); MEAN CELL VOLUME 88.8 fl (80-96); MEAN PLT VOLUME 7.6 fl (7.5-11.1); MONO % 8.5 % (3.8-10.2); NEUT % 73.5 % (42.8-82.8); PLATELET COUNT 164 10^3/uL (134-434); RBC 3.55 M/mm3 (4.00-5.60); RDW 15.8 % (11.9-15.9); WHITE BLOOD COUNT 4.1 K/mm3 (4.0-10.0)
[2021-09-18 23:54] LABS: INR 1.48 (0.83-1.09); PROTHROMBIN TIME (PATIENT) 17.1 SEC (9.7-13.0)
[2021-09-18 23:57] LABS: ACTIVATED PTT 35.2 SECONDS (25.2-36.5)
[2021-09-19 00:08] LABS: CALCIUM 8.3 mg/dL (8.5-10.1)
[2021-09-19 00:09] LABS: ALBUMIN 3.1 g/dl (3.4-5.0); BLOOD UREA NITROGEN 21.5 mg/dL (7-18)
[2021-09-19 00:12] LABS: CREATININE 2.3 mg/dL (0.55-1.3)
[2021-09-19 00:14] LABS: BILIRUBIN,TOTAL 0.5 mg/dL (0.2-1); TOT PROT 7.1 g/dl (6.4-8.2)
[2021-09-19] MEDS ORDERED: hydrALAZINE HCL 25 MG TABLET (FP) ONE (05:18)
[2021-09-19] MEDS ORDERED: DEXTROSE 50%-WATER 25 GM/50 ML DISP.SYRIN ONE (05:34)
[2021-09-19] MEDS ORDERED: DEXTROSE 50%-WATER - 25 GM/50 ML VIAL IVPUSH ONE (05:36)
[2021-09-19] MEDS: hydrALAZINE HCL 50 MG TABLET (FP) PO SCH ×3 (05:58→22:53)
[2021-09-19] MEDS ORDERED: hydrALAZINE HCL 50 MG TABLET (FP) PO SCH (06:00)
[2021-09-19] MEDS: INSULIN SLIDING SCALE (NOVOLOG) 1 VIAL SQ SCH ×4 (07:09→21:56)
[2021-09-19] MEDS ORDERED: DEXTROSE 5%-NORMAL SALINE 1,000 ML IV SCH (07:15)
[2021-09-19 09:35] LABS: ACTIVATED PTT 37.8 SECONDS (25.2-36.5); INR 1.46 (0.83-1.09); PROTHROMBIN TIME (PATIENT) 16.9 SEC (9.7-13.0)
[2021-09-19] MEDS: BICALUTAMIDE 50 MG TABLET (FP) PO SCH (10:24)
[2021-09-19 12:57] VITALS: BMI 25.4
[2021-09-19 14:57] LABS: BASO % 0.2 % (0-2.0); EOS % 1.6 % (0-4.5); HEMATOCRIT 32.6 % (35.4-49); HEMOGLOBIN 10.8 GM/dL (11.7-16.9); LYMPH % 17.2 % (8-40); MCH 29.7 pg (25.7-33.7); MCHC 33.1 g/dl (32.0-35.9); MEAN CELL VOLUME 89.8 fl (80-96); MEAN PLT VOLUME 7.8 fl (7.5-11.1); MONO % 10.4 % (3.8-10.2); NEUT % 70.6 % (42.8-82.8); PLATELET COUNT 149 10^3/uL (134-434); RBC 3.63 M/mm3 (4.00-5.60); RDW 15.8 % (11.9-15.9); WHITE BLOOD COUNT 3.5 K/mm3 (4.0-10.0)
[2021-09-19 15:25] LABS: CALCIUM 8.1 mg/dL (8.5-10.1)
[2021-09-19 15:26] LABS: BLOOD UREA NITROGEN 25.9 mg/dL (7-18); MAGNESIUM 2.2 mg/dL (1.8-2.4)
[2021-09-19 15:29] LABS: CREATININE 2.5 mg/dL (0.55-1.3); PHOSPHOROUS 4.1 mg/dL (2.5-4.9)
[2021-09-19] MEDS ORDERED: NORTRIPTYLINE HCL 25 MG CAPSULE PO SCH (22:00)
[2021-09-20] MEDS: INSULIN SLIDING SCALE (NOVOLOG) 1 VIAL SQ SCH ×3 (06:09→17:23)
[2021-09-20] MEDS: hydrALAZINE HCL 50 MG TABLET (FP) PO SCH ×2 (06:09→15:11)
[2021-09-20] MEDS: BICALUTAMIDE 50 MG TABLET (FP) PO SCH (09:57)
[2021-09-20 10:02] LABS: BASO % 0.4 % (0-2.0); HEMATOCRIT 31.7 % (35.4-49); HEMOGLOBIN 10.4 GM/dL (11.7-16.9); LYMPH % 16.4 % (8-40); MCH 29.6 pg (25.7-33.7); MCHC 32.8 g/dl (32.0-35.9); MEAN CELL VOLUME 90.3 fl (80-96); MEAN PLT VOLUME 8.1 fl (7.5-11.1); MONO % 7.2 % (3.8-10.2); PLATELET COUNT 184 10^3/uL (134-434); RBC 3.52 M/mm3 (4.00-5.60); RDW 15.8 % (11.9-15.9); WHITE BLOOD COUNT 5.1 K/mm3 (4.0-10.0)
[2021-09-20 10:27] LABS: CALCIUM 8.1 mg/dL (8.5-10.1)
[2021-09-20 10:28] LABS: BLOOD UREA NITROGEN 34.1 mg/dL (7-18); MAGNESIUM 2.3 mg/dL (1.8-2.4)
[2021-09-20 10:31] LABS: BILIRUBIN,TOTAL 0.7 mg/dL (0.2-1); CREATININE 3.3 mg/dL (0.55-1.3); PHOSPHOROUS 4.6 mg/dL (2.5-4.9)
[2021-09-20 10:33] LABS: TOT PROT 6.8 g/dl (6.4-8.2)
[2021-09-20 15:20] VITALS: PULSE 72
[2021-09-20 18:09] VITALS: BP 144/70; TEMP 98.1
== END 2021-09-20 18:40 | disposition home or self-care (01) ==
LOC: JER 22:14 → JERBED 09-19 01:44 → INTOOBSV 09-19 01:44 → J5S 09-19 08:39
PROVIDERS: ADMIT Internal Medicine; ATTEND Internal Medicine
PROC: 3E033GC Introduction of Other Therapeutic Substance into Peripheral Vein, Percutaneous Approach (ICD-10-PCS; principal; 2021-09-19)
PROC: 3E013VG Introduction of Insulin into Subcutaneous Tissue, Percutaneous Approach (ICD-10-PCS; 2021-09-19)
DX: I13.11 Hypertensive heart and chronic kidney disease without heart failure, with stage 5 chronic kidney disease, or end stage renal disease (principal); N18.6 End stage renal disease; N17.9 Acute kidney failure, unspecified; Z99.2 Dependence on renal dialysis; T86.11 Kidney transplant rejection; Z86.73 Personal history of transient ischemic attack (TIA), and cerebral infarction without residual deficits; K27.9 Peptic ulcer, site unspecified, unspecified as acute or chronic, without hemorrhage or perforation; E78.5 Hyperlipidemia, unspecified; Z85.46 Personal history of malignant neoplasm of prostate; R94.31 Abnormal electrocardiogram [ECG] [EKG]; Z95.1 Presence of aortocoronary bypass graft; Z98.890 Other specified postprocedural states; Y82.8 Other medical devices associated with adverse incidents
CPT/HCPCS: 36415; 80048; 80053; 82962; 83735; 84100; 85025; 85610; 85730; 86850; 86900; 86901; 93005; 93010; 96365; 96372; 96375; 99285-25; C9803; G0378; U0003; U0005

== ENCOUNTER 2021-12-11 14:41 | Inpatient (IN) | payer OTHER, MEDICARE ==
[2021-12-11] MEDS ORDERED: ALBUTEROL SO4 2.5/IPRATROPIUM 0.5 INH SOL 3 ML VIAL.NEB. NEB ONE ×2 (15:31→16:00)
[2021-12-11] MEDS ORDERED: DEXAMETHASONE SOD PHOSPHATE 10 MG/1 ML VIAL IVPUSH ONE (15:31)
[2021-12-11] MEDS ORDERED: DEXAMETHASONE SOD PHOSPHATE 10 MG/1 ML VIAL ONE (16:00)
[2021-12-11 16:51] LABS: VENOUS BASE EXCESS -2.5 mmol/L (-2-2); VENOUS O2 SATURATION 82.5 % (70-80); VENOUS PCO2 50.3 mmHg (38-52); VENOUS PH 7.301 (7.310-7.410)
[2021-12-11 16:53] LABS: BASO % 0.4 % (0-2.0); EOS % 3.6 % (0-4.5); HEMATOCRIT 34.4 % (35.4-49); HEMOGLOBIN 11.6 GM/dL (11.7-16.9); MCH 30.9 pg (25.7-33.7); MCHC 33.8 g/dl (32.0-35.9); MEAN CELL VOLUME 91.4 fl (80-96); MONO % 13.2 % (3.8-10.2); NEUT % 64.8 % (42.8-82.8); PLATELET COUNT 135 10^3/uL (134-434); RBC 3.76 M/mm3 (4.00-5.60); RDW 14.2 % (11.9-15.9); WHITE BLOOD COUNT 2.6 K/mm3 (4.0-10.0)
[2021-12-11 17:01] LABS: INR 1.39 (0.83-1.09)
[2021-12-11 17:04] LABS: ACTIVATED PTT 35.2 SECONDS (25.2-36.5)
[2021-12-11 17:10] LABS: CALCIUM 8.2 mg/dL (8.5-10.1)
[2021-12-11 17:11] LABS: ALBUMIN 2.9 g/dl (3.4-5.0); BLOOD UREA NITROGEN 20.7 mg/dL (7-18)
[2021-12-11 17:14] LABS: CREATININE 2.2 mg/dL (0.55-1.3)
[2021-12-11 17:16] LABS: BILIRUBIN,TOTAL 0.4 mg/dL (0.2-1); TOT PROT 7.2 g/dl (6.4-8.2)
[2021-12-11 18:16] LABS: BILIRUBIN,DIRECT 0.3 mg/dL (0.0-0.2)
[2021-12-11] MEDS ORDERED: ACETAMINOPHEN 325 MG TABLET (FP) PO PRN (19:23)
[2021-12-11] MEDS ORDERED: ALBUTEROL SO4 HFA INHALER IH PRN (19:23)
[2021-12-11] MEDS ORDERED: AZITHROMYCIN 500 MG TABLET PO ONE (20:00)
[2021-12-11] MEDS ORDERED: AZITHROMYCIN 500 MG TABLET ONE (20:03)
[2021-12-11] MEDS ORDERED: CEFTRIAXONE 1 GM/50 ML BAG ONE (20:03)
[2021-12-11] MEDS: CEFTRIAXONE 1 GM in DEXTROSE 5%-WATER - 50 ML IVPB SCH (20:41)
[2021-12-11] MEDS: HEPARIN NA (PORCINE) 5,000 UNITS/ML 1ML VIAL SQ SCH (23:05)
[2021-12-11] MEDS: INSULIN SLIDING SCALE (NOVOLOG) 1 VIAL SQ SCH (23:08)
[2021-12-12] MEDS: HEPARIN NA (PORCINE) 5,000 UNITS/ML 1ML VIAL SQ SCH ×3 (06:42→21:58)
[2021-12-12] MEDS: INSULIN SLIDING SCALE (NOVOLOG) 1 VIAL SQ SCH ×4 (06:50→21:58)
[2021-12-12] MEDS ORDERED: cefTRIAXone SODIUM 1 GM VIAL ONE (08:58)
[2021-12-12] MEDS ORDERED: DEXTROSE 5%-WATER - 50 ML IVPB ONE (08:58)
[2021-12-12] MEDS ORDERED: DEXAMETHASONE SOD PHOSPHATE 10 MG/1 ML VIAL IVPUSH SCH (10:00)
[2021-12-12] MEDS ORDERED: AZITHROMYCIN 250 MG TABLET PO SCH (10:00)
[2021-12-12] MEDS: CEFTRIAXONE 1 GM in DEXTROSE 5%-WATER - 50 ML IVPB SCH (10:50)
[2021-12-12] MEDS: ASPIRIN 81 MG CHEWABLE TABLETS PO SCH (10:50)
[2021-12-12] MEDS ORDERED: FUROSEMIDE 40 MG/4 ML INJECTABLE VIAL IVPUSH ONE (11:09)
[2021-12-12 13:38] LABS: HEMATOCRIT 34.9 % (35.4-49); HEMOGLOBIN 11.5 GM/dL (11.7-16.9); MCH 30.4 pg (25.7-33.7); MEAN CELL VOLUME 92.2 fl (80-96); MEAN PLT VOLUME 7.6 fl (7.5-11.1); PLATELET COUNT 146 10^3/uL (134-434); RBC 3.78 M/mm3 (4.00-5.60); RDW 14.2 % (11.9-15.9); WHITE BLOOD COUNT 9.7 K/mm3 (4.0-10.0)
[2021-12-12 14:02] LABS: CALCIUM 8.4 mg/dL (8.5-10.1)
[2021-12-12 14:03] LABS: BLOOD UREA NITROGEN 39.4 mg/dL (7-18); MAGNESIUM 2.2 mg/dL (1.8-2.4)
[2021-12-12 14:06] LABS: PHOSPHOROUS 4.6 mg/dL (2.5-4.9)
[2021-12-12 14:08] LABS: BILIRUBIN,TOTAL 0.4 mg/dL (0.2-1); CREATININE 3.5 mg/dL (0.55-1.3); TOT PROT 7.4 g/dl (6.4-8.2)
[2021-12-12] MEDS: hydrALAZINE HCL 50 MG TABLET (FP) PO SCH ×2 (14:51→21:58)
[2021-12-12 15:41] LABS: EPI CELLS 8 /uL (0-25.1); HYALINE CASTS 4 /uL (0-3.1); URINE APPEARANCE CLOUDY; URINE BACTERIA 34 /uL (0-1359); URINE BILIRUBIN 1+ (NEGATIVE); URINE COLOR DK YELLOW; URINE GLUCOSE (UA) 1+ (NEGATIVE); URINE KETONE TRACE (NEGATIVE); URINE LEUK ESTERASE NEGATIVE (NEGATIVE); URINE NITRITE NEGATIVE (NEGATIVE); URINE PROTEIN 3+ (NEGATIVE); URINE RBC 17 /uL (0-23.9); URINE WBC 32 /uL (0-25.8); YEAST NEGATIVE (NEGATIVE)
[2021-12-12] MEDS: ALBUTEROL SO4 2.5/IPRATROPIUM 0.5 INH SOL 3 ML VIAL.NEB. NEB SCH ×2 (16:14→20:10)
[2021-12-12] MEDS: methylPREDNISolone NA SUCC 40 MG/1 ML VIAL IVPUSH SCH (17:15)
[2021-12-12 19:07] LABS: SARS-CoV-2 NAA Not Detected (Not Detected)
[2021-12-12] MEDS ORDERED: DOXYCYCLINE HYCLATE 100 MG VIAL ONE (21:45)
[2021-12-12] MEDS ORDERED: DEXTROSE 5%-WATER 100 ML IVPB ONE (21:45)
[2021-12-12] MEDS: NORTRIPTYLINE HCL 25 MG CAPSULE PO SCH (21:58)
[2021-12-12] MEDS: DOXYCYCLINE INJECTION 100 MG in DEXTROSE 5%-WATER 100 ML IVPB SCH (21:59)
[2021-12-13] MEDS: methylPREDNISolone NA SUCC 40 MG/1 ML VIAL IVPUSH SCH ×3 (01:41→17:49)
[2021-12-13] MEDS: HEPARIN NA (PORCINE) 5,000 UNITS/ML 1ML VIAL SQ SCH ×3 (05:53→22:03)
[2021-12-13] MEDS: hydrALAZINE HCL 50 MG TABLET (FP) PO SCH ×3 (05:53→22:03)
[2021-12-13] MEDS: INSULIN SLIDING SCALE (NOVOLOG) 1 VIAL SQ SCH ×4 (06:22→22:03)
[2021-12-13 07:33] LABS: HEMOGLOBIN 11.4 GM/dL (11.7-16.9); MCH 29.9 pg (25.7-33.7); MCHC 32.7 g/dl (32.0-35.9); MEAN CELL VOLUME 91.6 fl (80-96); MEAN PLT VOLUME 7.5 fl (7.5-11.1); PLATELET COUNT 139 10^3/uL (134-434); RBC 3.82 M/mm3 (4.00-5.60); WHITE BLOOD COUNT 7.2 K/mm3 (4.0-10.0)
[2021-12-13 07:55] LABS: BLOOD UREA NITROGEN 57.7 mg/dL (7-18); CREATININE 4.1 mg/dL (0.55-1.3)
[2021-12-13 07:56] LABS: ALBUMIN 2.9 g/dl (3.4-5.0); CALCIUM 8.4 mg/dL (8.5-10.1)
[2021-12-13 07:57] LABS: BILIRUBIN,TOTAL 0.5 mg/dL (0.2-1); MAGNESIUM 2.3 mg/dL (1.8-2.4); TOT PROT 7.2 g/dl (6.4-8.2)
[2021-12-13] MEDS: ALBUTEROL SO4 2.5/IPRATROPIUM 0.5 INH SOL 3 ML VIAL.NEB. NEB SCH ×4 (08:36→19:56)
[2021-12-13] MEDS ORDERED: FUROSEMIDE 40 MG/4 ML INJECTABLE VIAL IVPUSH SCH (10:00)
[2021-12-13 10:08] LABS: ANISOCYTOSIS 0; MACROCYTOSIS 0; PLATELET ESTIMATE DECREASED
[2021-12-13] MEDS ORDERED: DOXYCYCLINE HYCLATE 100 MG VIAL ONE ×2 (10:39→21:39)
[2021-12-13] MEDS ORDERED: cefTRIAXone SODIUM 1 GM VIAL ONE (10:39)
[2021-12-13] MEDS ORDERED: DEXTROSE 5%-WATER - 50 ML IVPB ONE (10:39)
[2021-12-13] MEDS ORDERED: DEXTROSE 5%-WATER 100 ML IVPB ONE ×2 (10:39→21:40)
[2021-12-13] MEDS: DOXYCYCLINE INJECTION 100 MG in DEXTROSE 5%-WATER 100 ML IVPB SCH (10:46)
[2021-12-13] MEDS: CEFTRIAXONE 1 GM in DEXTROSE 5%-WATER - 50 ML IVPB SCH (10:46)
[2021-12-13] MEDS: ASPIRIN 81 MG CHEWABLE TABLETS PO SCH (10:46)
[2021-12-13] MEDS ORDERED: SODIUM CHLORIDE 250 ML IV PRN (12:05)
[2021-12-13] MEDS: TAMSULOSIN HCL 0.4 MG CAP PO SCH (14:50)
[2021-12-13] MEDS: FUROSEMIDE 40 MG/4 ML INJECTABLE VIAL IVPUSH SCH (14:50)
[2021-12-13] MEDS: DOXYCYCLINE INJECTION 100 MG in SODIUM CHLORIDE 100 ML IVPB SCH (22:02)
[2021-12-13] MEDS: NORTRIPTYLINE HCL 25 MG CAPSULE PO SCH (22:04)
[2021-12-14] MEDS: methylPREDNISolone NA SUCC 40 MG/1 ML VIAL IVPUSH SCH ×3 (01:25→15:15)
[2021-12-14] MEDS: FUROSEMIDE 40 MG/4 ML INJECTABLE VIAL IVPUSH SCH ×2 (05:46→13:43)
[2021-12-14] MEDS: HEPARIN NA (PORCINE) 5,000 UNITS/ML 1ML VIAL SQ SCH ×3 (05:46→21:46)
[2021-12-14] MEDS: hydrALAZINE HCL 50 MG TABLET (FP) PO SCH ×3 (05:46→21:46)
[2021-12-14] MEDS: INSULIN SLIDING SCALE (NOVOLOG) 1 VIAL SQ SCH ×4 (06:09→21:46)
[2021-12-14] MEDS: ALBUTEROL SO4 2.5/IPRATROPIUM 0.5 INH SOL 3 ML VIAL.NEB. NEB SCH ×4 (07:45→20:14)
[2021-12-14 07:47] LABS: HEMATOCRIT 33.7 % (35.4-49); HEMOGLOBIN 11.2 GM/dL (11.7-16.9); MCH 30.5 pg (25.7-33.7); MCHC 33.2 g/dl (32.0-35.9); MEAN CELL VOLUME 91.7 fl (80-96); MEAN PLT VOLUME 7.6 fl (7.5-11.1); PLATELET COUNT 143 10^3/uL (134-434); RBC 3.68 M/mm3 (4.00-5.60); RDW 14.3 % (11.9-15.9); WHITE BLOOD COUNT 6.7 K/mm3 (4.0-10.0)
[2021-12-14 08:09] LABS: CALCIUM 8.4 mg/dL (8.5-10.1)
[2021-12-14 08:10] LABS: ALBUMIN 2.7 g/dl (3.4-5.0); CREATININE 5.2 mg/dL (0.55-1.3); MAGNESIUM 2.3 mg/dL (1.8-2.4)
[2021-12-14 08:12] LABS: BILIRUBIN,TOTAL 0.4 mg/dL (0.2-1); TOT PROT 6.9 g/dl (6.4-8.2)
[2021-12-14 08:18] LABS: BLOOD UREA NITROGEN 91.7 mg/dL (7-18)
[2021-12-14] MEDS: TAMSULOSIN HCL 0.4 MG CAP PO SCH (09:00)
[2021-12-14 09:38] LABS: ANISOCYTOSIS 0; HELMET CELLS 0; HOWELL-JOLLY BODIES 0; MACROCYTOSIS 0; OVALOCYTE 0; ROULEAU 0; SICKELED CELLS 0; TARGET CELLS 0; TEAR DROP CELLS 0; TOXIC GRANULATION 0
[2021-12-14] MEDS ORDERED: DOXYCYCLINE HYCLATE 100 MG VIAL ONE ×2 (10:28→21:36)
[2021-12-14] MEDS ORDERED: DEXTROSE 5%-WATER - 50 ML IVPB ONE (10:29)
[2021-12-14] MEDS ORDERED: cefTRIAXone SODIUM 1 GM VIAL ONE (10:29)
[2021-12-14] MEDS ORDERED: SODIUM CHLORIDE 100 ML IVPB ONE ×2 (10:29→21:36)
[2021-12-14] MEDS: DOXYCYCLINE INJECTION 100 MG in SODIUM CHLORIDE 100 ML IVPB SCH ×2 (10:45→21:45)
[2021-12-14] MEDS: CEFTRIAXONE 1 GM in DEXTROSE 5%-WATER - 50 ML IVPB SCH (10:45)
[2021-12-14] MEDS: ASPIRIN 81 MG CHEWABLE TABLETS PO SCH (10:45)
[2021-12-14 15:30] LABS: ALBUMIN 2.9 g/dl (3.4-5.0); BLOOD UREA NITROGEN 94.1 mg/dL (7-18); CALCIUM 8.6 mg/dL (8.5-10.1)
[2021-12-14 15:30] LABS: PHOSPHOROUS 4.7 mg/dL (2.5-4.9)
[2021-12-14 15:36] LABS: CREATININE 5.4 mg/dL (0.55-1.3); PHOSPHOROUS 5.1 mg/dL (2.5-4.9)
[2021-12-14 15:38] LABS: BILIRUBIN,TOTAL 0.4 mg/dL (0.2-1)
[2021-12-14] MEDS: NORTRIPTYLINE HCL 25 MG CAPSULE PO SCH (21:46)
[2021-12-15] MEDS: methylPREDNISolone NA SUCC 40 MG/1 ML VIAL IVPUSH SCH (01:14)
[2021-12-15] MEDS: hydrALAZINE HCL 50 MG TABLET (FP) PO SCH ×3 (06:18→21:26)
[2021-12-15] MEDS: HEPARIN NA (PORCINE) 5,000 UNITS/ML 1ML VIAL SQ SCH (06:18)
[2021-12-15] MEDS: FUROSEMIDE 40 MG/4 ML INJECTABLE VIAL IVPUSH SCH ×2 (06:18→13:59)
[2021-12-15] MEDS: INSULIN SLIDING SCALE (NOVOLOG) 1 VIAL SQ SCH ×5 (06:19→21:32)
[2021-12-15] MEDS: ALBUTEROL SO4 2.5/IPRATROPIUM 0.5 INH SOL 3 ML VIAL.NEB. NEB SCH ×4 (07:40→19:43)
[2021-12-15] MEDS ORDERED: DOXYCYCLINE HYCLATE 100 MG VIAL ONE ×2 (08:52→21:08)
[2021-12-15] MEDS ORDERED: SODIUM CHLORIDE 100 ML IVPB ONE ×2 (08:53→21:08)
[2021-12-15 09:24] LABS: HEMATOCRIT 34.5 % (35.4-49); HEMOGLOBIN 11.2 GM/dL (11.7-16.9); MCH 29.9 pg (25.7-33.7); MCHC 32.5 g/dl (32.0-35.9); MEAN CELL VOLUME 91.9 fl (80-96); MEAN PLT VOLUME 7.6 fl (7.5-11.1); PLATELET COUNT 150 10^3/uL (134-434); RBC 3.76 M/mm3 (4.00-5.60); RDW 14.3 % (11.9-15.9); WHITE BLOOD COUNT 6.2 K/mm3 (4.0-10.0)
[2021-12-15 09:43] LABS: CALCIUM 8.5 mg/dL (8.5-10.1)
[2021-12-15 09:45] LABS: ALBUMIN 2.7 g/dl (3.4-5.0); MAGNESIUM 2.2 mg/dL (1.8-2.4)
[2021-12-15 09:47] LABS: CREATININE 3.5 mg/dL (0.55-1.3)
[2021-12-15 09:48] LABS: BILIRUBIN,TOTAL 0.4 mg/dL (0.2-1); TOT PROT 6.8 g/dl (6.4-8.2)
[2021-12-15] MEDS: TAMSULOSIN HCL 0.4 MG CAP PO SCH (10:06)
[2021-12-15] MEDS: ASPIRIN 81 MG CHEWABLE TABLETS PO SCH (10:06)
[2021-12-15] MEDS: DOXYCYCLINE INJECTION 100 MG in SODIUM CHLORIDE 100 ML IVPB SCH ×2 (10:07→21:32)
[2021-12-15 10:10] LABS: BLOOD UREA NITROGEN 53.5 mg/dL (7-18)
[2021-12-15] MEDS ORDERED: DEXTROSE 5%-WATER - 50 ML IVPB ONE (10:54)
[2021-12-15] MEDS ORDERED: cefTRIAXone SODIUM 1 GM VIAL ONE (10:54)
[2021-12-15] MEDS: CEFTRIAXONE 1 GM in DEXTROSE 5%-WATER - 50 ML IVPB SCH (11:23)
[2021-12-15 11:32] LABS: ANISOCYTOSIS 1+; MACROCYTOSIS 1+; OVALOCYTE 1+
[2021-12-15] MEDS ORDERED: INSULIN SLIDING SCALE (NOVOLOG) 1 VIAL SQ ONE (12:03)
[2021-12-15] MEDS: metoPROLOL SUCCINATE 25 MG TAB.SR.24H (FP) PO SCH (12:24)
[2021-12-15] MEDS: APIXABAN 2.5 MG TABLET PO SCH ×2 (13:49→21:26)
[2021-12-15] MEDS ORDERED: SODIUM CHLORIDE 250 ML IV PRN (14:49)
[2021-12-15] MEDS ORDERED: MAG HYDROX/AL HYDROX/SIMETH -MYLANTA- ORAL SUSPENSION PO ONE (20:48)
[2021-12-15] MEDS ORDERED: MAG HYDROX/AL HYDROX/SIMETH 30 ML UNIT-DOSE CUP PO ONE (21:15)
[2021-12-15] MEDS: NORTRIPTYLINE HCL 25 MG CAPSULE PO SCH (21:26)
[2021-12-15] MEDS: INSULIN (LEVEMIR) 100 UNITS/ML UNITS SQ SCH (21:31)
[2021-12-16] MEDS: FUROSEMIDE 40 MG/4 ML INJECTABLE VIAL IVPUSH SCH ×2 (05:46→15:24)
[2021-12-16] MEDS: hydrALAZINE HCL 50 MG TABLET (FP) PO SCH ×3 (05:47→21:36)
[2021-12-16] MEDS: INSULIN SLIDING SCALE (NOVOLOG) 1 VIAL SQ SCH ×4 (06:02→21:37)
[2021-12-16] MEDS: ALBUTEROL SO4 2.5/IPRATROPIUM 0.5 INH SOL 3 ML VIAL.NEB. NEB SCH ×4 (07:34→20:10)
[2021-12-16 07:36] LABS: BASO % 0.1 % (0-2.0); HEMATOCRIT 33.1 % (35.4-49); HEMOGLOBIN 11.2 GM/dL (11.7-16.9); LYMPH % 6.3 % (8-40); MCH 30.7 pg (25.7-33.7); MCHC 33.9 g/dl (32.0-35.9); MEAN CELL VOLUME 90.4 fl (80-96); MEAN PLT VOLUME 7.6 fl (7.5-11.1); MONO % 6.3 % (3.8-10.2); NEUT % 87.3 % (42.8-82.8); PLATELET COUNT 148 10^3/uL (134-434); RBC 3.66 M/mm3 (4.00-5.60); RDW 14.3 % (11.9-15.9); WHITE BLOOD COUNT 7.1 K/mm3 (4.0-10.0)
[2021-12-16 07:59] LABS: CALCIUM 8.5 mg/dL (8.5-10.1)
[2021-12-16 08:03] LABS: ALBUMIN 2.5 g/dl (3.4-5.0); CREATININE 4.2 mg/dL (0.55-1.3); MAGNESIUM 2.3 mg/dL (1.8-2.4)
[2021-12-16 08:04] LABS: BILIRUBIN,TOTAL 0.5 mg/dL (0.2-1); TOT PROT 6.3 g/dl (6.4-8.2)
[2021-12-16 08:16] LABS: BLOOD UREA NITROGEN 80.7 mg/dL (7-18)
[2021-12-16] MEDS ORDERED: SODIUM CHLORIDE 100 ML IVPB ONE (09:03)
[2021-12-16] MEDS ORDERED: DOXYCYCLINE HYCLATE 100 MG VIAL ONE (09:03)
[2021-12-16] MEDS ORDERED: cefTRIAXone SODIUM 1 GM VIAL ONE (09:03)
[2021-12-16] MEDS ORDERED: DEXTROSE 5%-WATER - 50 ML IVPB ONE (09:04)
[2021-12-16] MEDS: TAMSULOSIN HCL 0.4 MG CAP PO SCH (09:07)
[2021-12-16] MEDS: methylPREDNISolone NA SUCC 40 MG/1 ML VIAL IVPUSH SCH (09:08)
[2021-12-16] MEDS: APIXABAN 2.5 MG TABLET PO SCH ×2 (09:08→21:36)
[2021-12-16] MEDS: CEFTRIAXONE 1 GM in DEXTROSE 5%-WATER - 50 ML IVPB SCH (09:08)
[2021-12-16] MEDS: metoPROLOL SUCCINATE 25 MG TAB.SR.24H (FP) PO SCH (09:08)
[2021-12-16] MEDS: DOXYCYCLINE INJECTION 100 MG in SODIUM CHLORIDE 100 ML IVPB SCH (09:08)
[2021-12-16] MEDS ORDERED: DEXTROSE 5%-WATER 100 ML IVPB ONE (21:27)
[2021-12-16] MEDS ORDERED: ceFAZolin SODIUM 1 GM VIAL ONE (21:27)
[2021-12-16] MEDS: CEFAZOLIN 1 GM in DEXTROSE 5%-WATER 100 ML IVPB SCH (21:32)
[2021-12-16] MEDS: INSULIN (LEVEMIR) 100 UNITS/ML UNITS SQ SCH (21:36)
[2021-12-16] MEDS: NORTRIPTYLINE HCL 25 MG CAPSULE PO SCH (23:08)
[2021-12-17] MEDS: FUROSEMIDE 40 MG/4 ML INJECTABLE VIAL IVPUSH SCH (05:42)
[2021-12-17] MEDS: hydrALAZINE HCL 50 MG TABLET (FP) PO SCH ×3 (05:43→21:53)
[2021-12-17] MEDS: INSULIN SLIDING SCALE (NOVOLOG) 1 VIAL SQ SCH ×4 (06:34→21:57)
[2021-12-17] MEDS: ALBUTEROL SO4 2.5/IPRATROPIUM 0.5 INH SOL 3 ML VIAL.NEB. NEB SCH ×4 (07:35→20:30)
[2021-12-17] MEDS ORDERED: ceFAZolin SODIUM 1 GM VIAL ONE ×2 (09:41→21:48)
[2021-12-17] MEDS ORDERED: DEXTROSE 5%-WATER 100 ML IVPB ONE ×2 (09:42→21:49)
[2021-12-17] MEDS: APIXABAN 2.5 MG TABLET PO SCH ×2 (09:45→21:53)
[2021-12-17] MEDS: TAMSULOSIN HCL 0.4 MG CAP PO SCH (09:46)
[2021-12-17] MEDS: metoPROLOL SUCCINATE 25 MG TAB.SR.24H (FP) PO SCH (09:46)
[2021-12-17] MEDS: CEFAZOLIN 1 GM in DEXTROSE 5%-WATER 100 ML IVPB SCH ×2 (09:46→21:53)
[2021-12-17] MEDS: methylPREDNISolone NA SUCC 40 MG/1 ML VIAL IVPUSH SCH (11:11)
[2021-12-17 12:45] LABS: BASO % 0.1 % (0-2.0); HEMATOCRIT 34.7 % (35.4-49); HEMOGLOBIN 11.6 GM/dL (11.7-16.9); MCH 30.5 pg (25.7-33.7); MCHC 33.4 g/dl (32.0-35.9); MEAN CELL VOLUME 91.3 fl (80-96); MEAN PLT VOLUME 7.7 fl (7.5-11.1); NEUT % 83.9 % (42.8-82.8); PLATELET COUNT 161 10^3/uL (134-434); RDW 14.3 % (11.9-15.9); WHITE BLOOD COUNT 8.1 K/mm3 (4.0-10.0)
[2021-12-17 13:13] LABS: ALBUMIN 2.8 g/dl (3.4-5.0); MAGNESIUM 2.2 mg/dL (1.8-2.4)
[2021-12-17 13:15] LABS: BILIRUBIN,TOTAL 0.4 mg/dL (0.2-1); CALCIUM 8.7 mg/dL (8.5-10.1)
[2021-12-17 13:16] LABS: TOT PROT 6.6 g/dl (6.4-8.2)
[2021-12-17 13:41] LABS: BLOOD UREA NITROGEN 50.3 mg/dL (7-18)
[2021-12-17] MEDS ORDERED: SODIUM CHLORIDE 250 ML IV PRN (16:07)
[2021-12-17] MEDS: INSULIN (LEVEMIR) 100 UNITS/ML UNITS SQ SCH (21:57)
[2021-12-17] MEDS: NORTRIPTYLINE HCL 25 MG CAPSULE PO SCH (22:00)
[2021-12-18] MEDS: hydrALAZINE HCL 50 MG TABLET (FP) PO SCH ×3 (06:03→21:59)
[2021-12-18] MEDS: INSULIN SLIDING SCALE (NOVOLOG) 1 VIAL SQ SCH ×4 (06:08→22:04)
[2021-12-18] MEDS: ALBUTEROL SO4 2.5/IPRATROPIUM 0.5 INH SOL 3 ML VIAL.NEB. NEB SCH ×4 (07:49→19:39)
[2021-12-18] MEDS ORDERED: DEXTROSE 5%-WATER 100 ML IVPB ONE ×2 (09:03→21:47)
[2021-12-18] MEDS ORDERED: ceFAZolin SODIUM 1 GM VIAL ONE ×2 (09:03→21:47)
[2021-12-18] MEDS: TAMSULOSIN HCL 0.4 MG CAP PO SCH (09:04)
[2021-12-18] MEDS: CEFAZOLIN 1 GM in DEXTROSE 5%-WATER 100 ML IVPB SCH ×2 (09:04→21:59)
[2021-12-18] MEDS: methylPREDNISolone NA SUCC 40 MG/1 ML VIAL IVPUSH SCH (09:05)
[2021-12-18] MEDS: APIXABAN 2.5 MG TABLET PO SCH ×2 (09:05→21:59)
[2021-12-18] MEDS: metoPROLOL SUCCINATE 25 MG TAB.SR.24H (FP) PO SCH (09:06)
[2021-12-18 13:50] LABS: HEMATOCRIT 34.7 % (35.4-49); HEMOGLOBIN 11.6 GM/dL (11.7-16.9); MCH 30.7 pg (25.7-33.7); MCHC 33.5 g/dl (32.0-35.9); MEAN CELL VOLUME 91.6 fl (80-96); MEAN PLT VOLUME 7.5 fl (7.5-11.1); PLATELET COUNT 172 10^3/uL (134-434); RBC 3.79 M/mm3 (4.00-5.60); RDW 14.6 % (11.9-15.9); WHITE BLOOD COUNT 10.7 K/mm3 (4.0-10.0)
[2021-12-18 14:12] LABS: CHLORIDE 92 mmol/L (98-107); SODIUM 131 mmol/L (136-145)
[2021-12-18 14:14] LABS: CALCIUM 8.4 mg/dL (8.5-10.1)
[2021-12-18 14:15] LABS: ALBUMIN 2.8 g/dl (3.4-5.0); ANION GAP 11 MMOL/L (8-16); CO2 28 mmol/L (21-32); MAGNESIUM 2.4 mg/dL (1.8-2.4)
[2021-12-18 14:17] LABS: PHOSPHOROUS 4.7 mg/dL (2.5-4.9)
[2021-12-18 14:18] LABS: CREATININE 4.1 mg/dL (0.55-1.3); SGOT/AST 23 U/L (15-37); SGPT/ALT 24 U/L (13-61)
[2021-12-18 14:19] LABS: BILIRUBIN,TOTAL 0.5 mg/dL (0.2-1); LDH 177 U/L (87-246); TOT PROT 6.5 g/dl (6.4-8.2)
[2021-12-18 14:20] LABS: ALK PHOS 197 U/L (45-117)
[2021-12-18 14:27] LABS: GLUCOSE,RANDOM 457 mg/dL (74-106)
[2021-12-18 15:03] LABS: ANISOCYTOSIS 0; MACROCYTOSIS 1+
[2021-12-18 15:14] VITALS: BMI 23.6
[2021-12-18] MEDS: NORTRIPTYLINE HCL 25 MG CAPSULE PO SCH (21:59)
[2021-12-18] MEDS: INSULIN (LEVEMIR) 100 UNITS/ML UNITS SQ SCH (22:03)
[2021-12-19] MEDS: INSULIN SLIDING SCALE (NOVOLOG) 1 VIAL SQ SCH ×4 (06:43→22:04)
[2021-12-19] MEDS: hydrALAZINE HCL 50 MG TABLET (FP) PO SCH ×3 (06:46→21:42)
[2021-12-19] MEDS: ALBUTEROL SO4 2.5/IPRATROPIUM 0.5 INH SOL 3 ML VIAL.NEB. NEB SCH ×4 (07:53→20:17)
[2021-12-19] MEDS: TAMSULOSIN HCL 0.4 MG CAP PO SCH (08:40)
[2021-12-19] MEDS ORDERED: ceFAZolin SODIUM 1 GM VIAL ONE ×2 (09:10→21:16)
[2021-12-19] MEDS ORDERED: DEXTROSE 5%-WATER 100 ML IVPB ONE ×2 (09:11→21:16)
[2021-12-19] MEDS: CEFAZOLIN 1 GM in DEXTROSE 5%-WATER 100 ML IVPB SCH ×2 (09:35→21:42)
[2021-12-19] MEDS: metoPROLOL SUCCINATE 25 MG TAB.SR.24H (FP) PO SCH (09:35)
[2021-12-19] MEDS: APIXABAN 2.5 MG TABLET PO SCH ×2 (09:35→21:42)
[2021-12-19] MEDS: methylPREDNISolone NA SUCC 40 MG/1 ML VIAL IVPUSH SCH (09:35)
[2021-12-19 13:01] LABS: HEMATOCRIT 35.4 % (35.4-49); HEMOGLOBIN 11.8 GM/dL (11.7-16.9); MCH 30.5 pg (25.7-33.7); MCHC 33.4 g/dl (32.0-35.9); MEAN CELL VOLUME 91.3 fl (80-96); MEAN PLT VOLUME 7.4 fl (7.5-11.1); PLATELET COUNT 163 10^3/uL (134-434); RBC 3.88 M/mm3 (4.00-5.60); RDW 14.5 % (11.9-15.9); WHITE BLOOD COUNT 9.5 K/mm3 (4.0-10.0)
[2021-12-19 13:07] LABS: CHLORIDE 96 mmol/L (98-107); SODIUM 135 mmol/L (136-145)
[2021-12-19 13:09] LABS: ALBUMIN 2.8 g/dl (3.4-5.0); ANION GAP 6 MMOL/L (8-16); BLOOD UREA NITROGEN 47.6 mg/dL (7-18); CALCIUM 8.3 mg/dL (8.5-10.1); CO2 32 mmol/L (21-32); GLUCOSE,RANDOM 349 mg/dL (74-106)
[2021-12-19 13:10] LABS: MAGNESIUM 2.3 mg/dL (1.8-2.4)
[2021-12-19 13:12] LABS: SGOT/AST 21 U/L (15-37); SGPT/ALT 20 U/L (13-61)
[2021-12-19 13:13] LABS: LDH 161 U/L (87-246)
[2021-12-19 13:14] LABS: BILIRUBIN,TOTAL 0.4 mg/dL (0.2-1); CREATININE 3.2 mg/dL (0.55-1.3); TOT PROT 6.3 g/dl (6.4-8.2)
[2021-12-19 13:15] LABS: ALK PHOS 186 U/L (45-117)
[2021-12-19 14:42] LABS: ANISOCYTOSIS 0; HELMET CELLS 0; HOWELL-JOLLY BODIES 0; MACROCYTOSIS 0; OVALOCYTE 0; ROULEAU 0; SICKELED CELLS 0; TARGET CELLS 0; TEAR DROP CELLS 0; TOXIC GRANULATION 0
[2021-12-19] MEDS ORDERED: guaiFENesin/D-M SUGAR-FREE/ACLHOL-FREE 118 ML BOTTLE PO PRN (20:52)
[2021-12-19] MEDS: INSULIN (LEVEMIR) 100 UNITS/ML UNITS SQ SCH (22:05)
[2021-12-19] MEDS: NORTRIPTYLINE HCL 25 MG CAPSULE PO SCH (22:06)
[2021-12-20] MEDS ORDERED: Insulin (LOG) Aspart 100 UNITS/ML VIAL SQ ONE (02:35)
[2021-12-20] MEDS: INSULIN SLIDING SCALE (NOVOLOG) 1 VIAL SQ SCH ×4 (06:21→21:39)
[2021-12-20] MEDS: hydrALAZINE HCL 50 MG TABLET (FP) PO SCH ×3 (06:21→21:28)
[2021-12-20] MEDS: ALBUTEROL SO4 2.5/IPRATROPIUM 0.5 INH SOL 3 ML VIAL.NEB. NEB SCH ×4 (07:20→20:00)
[2021-12-20] MEDS: TAMSULOSIN HCL 0.4 MG CAP PO SCH (08:36)
[2021-12-20] MEDS ORDERED: FUROSEMIDE 40 MG/4 ML INJECTABLE VIAL IVPUSH ONE (08:46)
[2021-12-20] MEDS ORDERED: ceFAZolin SODIUM 1 GM VIAL ONE ×2 (09:27→21:00)
[2021-12-20] MEDS ORDERED: DEXTROSE 5%-WATER 100 ML IVPB ONE ×2 (09:28→21:00)
[2021-12-20] MEDS: CEFAZOLIN 1 GM in DEXTROSE 5%-WATER 100 ML IVPB SCH ×2 (10:23→21:28)
[2021-12-20] MEDS: APIXABAN 2.5 MG TABLET PO SCH ×2 (10:24→21:28)
[2021-12-20] MEDS: methylPREDNISolone NA SUCC 40 MG/1 ML VIAL IVPUSH SCH (10:25)
[2021-12-20] MEDS: metoPROLOL SUCCINATE 25 MG TAB.SR.24H (FP) PO SCH (10:25)
[2021-12-20] MEDS: INSULIN (LEVEMIR) 100 UNITS/ML UNITS SQ SCH ×2 (10:25→21:39)
[2021-12-20] MEDS ORDERED: SODIUM CHLORIDE 250 ML IV PRN (11:36)
[2021-12-20 13:11] LABS: HEMATOCRIT 34.3 % (35.4-49); HEMOGLOBIN 11.4 GM/dL (11.7-16.9); MCH 30.6 pg (25.7-33.7); MCHC 33.3 g/dl (32.0-35.9); MEAN CELL VOLUME 91.8 fl (80-96); MEAN PLT VOLUME 7.6 fl (7.5-11.1); PLATELET COUNT 174 10^3/uL (134-434); RBC 3.74 M/mm3 (4.00-5.60); RDW 14.3 % (11.9-15.9); WHITE BLOOD COUNT 10.4 K/mm3 (4.0-10.0)
[2021-12-20 14:19] LABS: ANISOCYTOSIS 0; HELMET CELLS 0; HOWELL-JOLLY BODIES 0; MACROCYTOSIS 0; OVALOCYTE 0; ROULEAU 0; SICKELED CELLS 0; TARGET CELLS 0; TEAR DROP CELLS 0; TOXIC GRANULATION 0
[2021-12-20] MEDS: NORTRIPTYLINE HCL 25 MG CAPSULE PO SCH (21:28)
[2021-12-21] MEDS: hydrALAZINE HCL 50 MG TABLET (FP) PO SCH ×2 (06:28→13:38)
[2021-12-21] MEDS: INSULIN SLIDING SCALE (NOVOLOG) 1 VIAL SQ SCH ×3 (06:30→17:10)
[2021-12-21] MEDS: INSULIN (LEVEMIR) 100 UNITS/ML UNITS SQ SCH (06:31)
[2021-12-21] MEDS: ALBUTEROL SO4 2.5/IPRATROPIUM 0.5 INH SOL 3 ML VIAL.NEB. NEB SCH ×2 (07:25→11:12)
[2021-12-21 09:05] LABS: ALBUMIN 2.7 g/dl (3.4-5.0); CALCIUM 8.3 mg/dL (8.5-10.1)
[2021-12-21 09:08] LABS: CREATININE 4.8 mg/dL (0.55-1.3)
[2021-12-21 09:10] LABS: BILIRUBIN,TOTAL 0.4 mg/dL (0.2-1); TOT PROT 6.1 g/dl (6.4-8.2)
[2021-12-21 09:11] LABS: BLOOD UREA NITROGEN 76.8 mg/dL (7-18)
[2021-12-21] MEDS ORDERED: DEXTROSE 5%-WATER 100 ML IVPB ONE (09:55)
[2021-12-21] MEDS ORDERED: ceFAZolin SODIUM 1 GM VIAL ONE (09:55)
[2021-12-21] MEDS ORDERED: predniSONE 20 MG TABLET (UD) PO SCH (10:00)
[2021-12-21] MEDS: TAMSULOSIN HCL 0.4 MG CAP PO SCH (11:05)
[2021-12-21] MEDS: metoPROLOL SUCCINATE 25 MG TAB.SR.24H (FP) PO SCH (11:06)
[2021-12-21] MEDS: APIXABAN 2.5 MG TABLET PO SCH (11:06)
[2021-12-21] MEDS: CEFAZOLIN 1 GM in DEXTROSE 5%-WATER 100 ML IVPB SCH (11:06)
[2021-12-21 14:24] VITALS: BP 110/64; PULSE 93; TEMP 97.4
== END 2021-12-21 19:10 | disposition home or self-care (01) | DRG 177 ==
LOC: JER 14:41 → JERBED 15:44 → J4S 22:08
PROVIDERS: ADMIT Internal Medicine; ATTEND Nurse Practitioner Family
PROC: 5A1D70Z Performance of Urinary Filtration, Intermittent, Less than 6 Hours Per Day (ICD-10-PCS; principal; 2021-12-14)
PROC: 5A1D70Z Performance of Urinary Filtration, Intermittent, Less than 6 Hours Per Day (ICD-10-PCS; 2021-12-16)
PROC: 5A1D70Z Performance of Urinary Filtration, Intermittent, Less than 6 Hours Per Day (ICD-10-PCS; 2021-12-18)
PROC: 5A1D70Z Performance of Urinary Filtration, Intermittent, Less than 6 Hours Per Day (ICD-10-PCS; 2021-12-21)
DX: J15.211 Pneumonia due to Methicillin susceptible Staphylococcus aureus (principal); N18.6 End stage renal disease; I50.33 Acute on chronic diastolic (congestive) heart failure; J96.01 Acute respiratory failure with hypoxia; T86.12 Kidney transplant failure; I47.2 Ventricular tachycardia; E87.1 Hypo-osmolality and hyponatremia; J44.0 Chronic obstructive pulmonary disease with (acute) lower respiratory infection; J44.1 Chronic obstructive pulmonary disease with (acute) exacerbation; I13.2 Hypertensive heart and chronic kidney disease with heart failure and with stage 5 chronic kidney disease, or end stage renal disease; Z94.0 Kidney transplant status; J98.11 Atelectasis; I48.92 Unspecified atrial flutter; J15.3 Pneumonia due to streptococcus, group B; I48.91 Unspecified atrial fibrillation; I25.10 Atherosclerotic heart disease of native coronary artery without angina pectoris; E78.5 Hyperlipidemia, unspecified; E11.40 Type 2 diabetes mellitus with diabetic neuropathy, unspecified; E11.22 Type 2 diabetes mellitus with diabetic chronic kidney disease; D63.1 Anemia in chronic kidney disease; E87.70 Fluid overload, unspecified; Z95.1 Presence of aortocoronary bypass graft; Z95.2 Presence of prosthetic heart valve; Z99.2 Dependence on renal dialysis; Z99.81 Dependence on supplemental oxygen; Z87.11 Personal history of peptic ulcer disease; Z86.73 Personal history of transient ischemic attack (TIA), and cerebral infarction without residual deficits
CPT/HCPCS: 36415; 71045-TC-FY; 71275-TC; 80048; 80053; 81003; 82248; 82728; 82803; 82962; 83036; 83615; 83735; 83880; 84100; 84484; 85025; 85027; 85379; 85610; 85730; 86140; 86803; 87040; 87070; 87077; 87086; 87186; 87205; 87340; 87633; 87804; 87807; 87899; 93005; 93010; 93306-TC; 94010; 94640; 97116-GP; 97161-GP; 99285-25; C9803-CS; J1100; J1644; Q9967; U0003; U0005

== ENCOUNTER 2021-12-25 16:38 | Emergency (ER) | payer OTHER, MEDICARE ==
[2021-12-25] MEDS ORDERED: CALCIUM CHLORIDE 1 GM/10 ML *DISP.SYRIN ONE (16:46)
[2021-12-25] MEDS ORDERED: EPINEPHrine 1:10,000 (P-F SYR) 1 MG/10 ML DISP.SYRIN ONE (16:47)
[2021-12-25] MEDS ORDERED: SODIUM BICARBONATE 8.4% - 50 ML ONE (16:47)
[2021-12-25 16:52] VITALS: BP 0/0; PULSE 0; BMI 23.4
== END 2021-12-25 20:37 | disposition expired ==
LOC: JER 16:38
DX: I46.9 Cardiac arrest, cause unspecified (principal)
CPT/HCPCS: 99291